=== PATIENT | female | born 1960 | race Caucasian/White ===

== ENCOUNTER → 2017-03-31 | Outpatient (CLI) | payer OTHER ==
--- NOTE | 2017-03-31 15:06 | US ---
EXAMINATION TYPE: US thyroid st tissue head/neck DATE OF EXAM: 03/31/2017 COMPARISON: NONE CLINICAL HISTORY: E04.1 Nontoxic single thyroid nodule. Follow up thyroid nodules GLAND SIZE: Right Lobe: 5.8 x 1.6 x 2.0 cm Overall Parenchyma: heterogenous Left Lobe: 5.6 x 1.5 x 1.8 cm Overall Parenchyma: heterogeneous Isthmus Thickness: 0.2 cm NODULES RIGHT: # of nodules measured on right: 2 1. 0.9 X 0.7 x 0.6 cm isoechoic solid nodule at the mid pole with well-defined margins; . This nod ule is wider than tall and shows intranodular vascularity. Prior size: 0.8 x 0.5 x 0.7 cm 2. 0.7 X 0.6 x 0.8 cm isoechoic solid nodule at the lower pole with well-defined margins; . This no dule is wider than tall and shows intranodular vascularity. Prior size: 0.7 x 0.5 x 0.8 cm LEFT: # of nodules measured on left: 0 ISTHMUS: # of nodules measured in the isthmus: 0 Bilateral neck scanned, no evidence of lymphadenopathy. Heterogeneous gland. 2 nodules noted right lobe with little to no change from prior exam. Unable to i dentify a distinct nodule within left lobe. IMPRESSION: Unchanged subcentimeter right thyroid nodules in a heterogenous and enlarged thyroid gland. The previ ously seen left thyroid nodule is not clearly defined on this study and not measurable. Follow-up as clinically indicated.
== END | disposition home or self-care (01) ==
LOC: RADUSWWP 14:15
PROVIDERS: ATTEND Family Medicine
DX: E04.2 Nontoxic multinodular goiter (principal)
CPT/HCPCS: 76536

== ENCOUNTER → 2017-04-18 | Outpatient (CLI) | payer OTHER ==
--- NOTE | 2017-04-18 10:44 | MM ---
Reason for exam: clinical finding. Last mammogram was performed 11 months ago. History: Patient is postmenopausal and has history of breast cancer at age 55. Implant in the right breast, July 2016. Reconstructions, 2016. Mastectomy of the right breast, 2016. Chemotherapy, 2016. Radiation therapy of the right breast, 2016. Malignant US biopsy breast VAD RT of the right breast, July 21, 2015. Malignant US biopsy breast add'l VAD RT of the right breast, July 21, 2015. Benign excisional biopsy of the right breast, 2005. Taking antineoplastic for 1 year 6 months beginning at age 55. Indicated problem(s): lump or thickening in the left breast. Physical Findings: Nurse did not find any significant physical abnormalities on exam. MG Diagnostic Mammo LT w CAD CC and MLO view(s) were taken of the left breast. Prior study comparison: May 13, 2016, left breast MG diagnostic mammo LT w CAD. July 21, 2015, right breast MG diagnostic mammo RT wo CAD. The breast tissue is heterogeneously dense. This may lower the sensitivity of mammography. Finding #1: There is a 3 mm equal density (isodense), obscured round mass in the 9 o'clock inner quadrant, middle position of the left breast, 4cm from the nipple, smaller than 2016. Finding #2: There are typically benign, fine, diffuse/scattered calcifications in the left breast. These results were verbally communicated with the patient and result sheet given to the patient on 04/18/17. ASSESSMENT: Benign, BI-RAD 2 RECOMMENDATION: Follow-up diagnostic mammogram of both breasts in 1 year. Manage patient on a clinical basis.
--- NOTE | 2017-04-18 10:45 | USB ---
Reason for exam: clinical finding. History: Patient is postmenopausal and has history of breast cancer at age 55. Implant in the right breast, July 2016. Reconstructions, 2016. Mastectomy of the right breast, 2016. Chemotherapy, 2016. Radiation therapy of the right breast, 2016. Malignant US biopsy breast VAD RT of the right breast, July 21, 2015. Malignant US biopsy breast add'l VAD RT of the right breast, July 21, 2015. Benign excisional biopsy of the right breast, 2005. Taking antineoplastic for 1 year 6 months beginning at age 55. US Breast LT Left breast ultrasound includes all four quadrants, the retroareolar region and axilla. Finding demonstrates a 0.6 x 0.4 x 0.3cm cystic lesion at 1 o'clock. These results were verbally communicated with the patient and result sheet given to the patient on 04/18/17. ASSESSMENT: Benign, BI-RAD 2 RECOMMENDATION: Follow-up diagnostic mammogram of both breasts in 1 year. Manage patient on a clinical basis.
== END | disposition home or self-care (01) ==
LOC: RADMAMWWP 09:33
PROVIDERS: ATTEND Family Medicine
DX: Z08 Encounter for follow-up examination after completed treatment for malignant neoplasm (principal); N63 Unspecified lump in breast; Z85.3 Personal history of malignant neoplasm of breast
CPT/HCPCS: 76641; G0206

== ENCOUNTER → 2017-12-22 | Outpatient (CLI) | payer OTHER ==
--- NOTE | 2017-12-22 11:37 | BD ---
EXAMINATION TYPE: MG DEXA axial skeleton. DATE OF EXAM: 12/22/2017 COMPARISON: 12.13.2015 DEXA bone scan. CLINICAL HISTORY: 57 YR OLD FEMALE.....ICD-10 CODE: Z79.890 POST MARCY W/HRT, N95.1 POST MENOPAUSE Height: 64 Weight: 137 FRAX RISK QUESTIONS: Alcohol (3 or more units per day): NO Family History (Parent hip fracture): NO Glucocorticoids (More than 3mos): NO (Ex: prednisone, prednisolone, methylprednisolone, dexamethasone, and hydrocortisone). History of Fracture in Adulthood: NO Secondary Osteoporosis: NO 1. Type 1 Diabetes: NO 2. Hyperthyroidism: NO 3. Menopause before 45: NO 4. Malnutrition: NO 5. Chronic liver disease: NO Rheumatoid Arthritis: NO Current Tobacco Use: NO RISK FACTORS HISTORY OF: Active: YES Diet low in dairy products/other sources of calcium: YES Postmenopausal woman: YES AT AGE 49YRS Hyperparathyroidism: NO Adrenal Insufficiency: NO MEDICATIONS: Prednisone or other steroids: STEROIDS ONLY WITH ILLNESS Thyroid Medications: YES, GENERIC SYNTHROID, X15 YRS Additional Medications: ANASTRAZOLE, HX OF CHEMO AND RADIATION, CALCIUM AND VIT D, Additional History: HX OF RT BREAST CANCER, 2016 , ALLERGIES EXAM MEASUREMENTS: Bone mineral densitometry was performed using the [email or web address] System. Bone mineral density as measured about the Lumbar spine is: ----- L1-L4(G/cm2): 1.301 T Score Values are as follows: ----- L1: 1.0 ----- L2: 1.2 ----- L3: 1.5 ----- L4: 0.3 ----- L1-L4: 1.0 Bone mineral density has: Decreased -8.4% since study of: 12.13.2015 Bone mineral density about the R hip (g/cm2): 1.010 Bone mineral density about the L hip (g/cm2): 0.996 T Score values are as follows: -----R Neck: -0.8 -----L Neck: -0.9 -----R Total: 0.0 -----L Total: -0.1 Bone mineral density has: Decreased -7.0% since study of: 12.13.2015 FRAX%S: THERE IS A 6.7% CHANCE OF A MAJOR OSTEOPOROTIC FX AND A 0.4% FOR HIP FX.....PROBABILITY OF FX IN 10 YRS TIME IMPRESSION: Normal (Values between +1 and -1 indicate normal bone mass). Bone density is diminished from prior b ut remains in the normal range. Consider repeating this study in 5 years or sooner if there is some n ew clinical indication. NOTE: T-SCORE=SD OF THE YOUNG ADULT MEAN.
== END | disposition home or self-care (01) ==
LOC: RADBDWWP 10:30
PROVIDERS: ATTEND Internal Medicine Hematology & Oncology
DX: C50.811 Malignant neoplasm of overlapping sites of right female breast (principal); N95.1 Menopausal and female climacteric states; Z79.890 Hormone replacement therapy
CPT/HCPCS: 77080

== ENCOUNTER → 2018-04-21 | Outpatient (CLI) | payer OTHER ==
--- NOTE | 2018-04-21 12:03 | MM ---
Reason for exam: additional evaluation requested from prior study. Last mammogram was performed 1 year ago. History: Patient is postmenopausal and has history of breast cancer at age 55. Implant in the right breast, July 2016. Reconstructions, 2016. Mastectomy of the right breast, 2016. Chemotherapy, 2016. Radiation therapy of the right breast, 2016. Malignant US biopsy breast VAD RT of the right breast, July 21, 2015. Malignant US biopsy breast add'l VAD RT of the right breast, July 21, 2015. Benign excisional biopsy of the right breast, 2005. Taking antineoplastic for 1 year 6 months beginning at age 55. Physical Findings: Nurse did not find any significant physical abnormalities on exam. MG 3D Diag Mammo W/Cad LT CC, MLO, LM, CC with magnification, and ML with magnification view(s) were taken of the left breast. Prior study comparison: April 18, 2017, left breast MG diagnostic mammo LT w CAD. May 13, 2016, left breast MG diagnostic mammo LT w CAD. The breast tissue is heterogeneously dense. This may lower the sensitivity of mammography. Finding: There are changing punctate, segmental calcifications in the upper outer quadrant, middle position of the left breast 7cm from the nipple. New finding since April 18, 2017. These results were verbally communicated with the patient and result sheet given to the patient on 04/21/18. ASSESSMENT: Suspicious, BI-RAD 4 RECOMMENDATION: Stereotactic core biopsy of the left breast. Called with mammographic findings and has scheduled an appointment for the patient for 04/22/18 at 9:[address] Barker. PRELIMINARY REPORT CALLED AND FAXED TO DR. BARKER ON 04/21/18.
== END | disposition home or self-care (01) ==
LOC: RADMAMWWP 09:23
PROVIDERS: ATTEND Internal Medicine Hematology & Oncology
DX: Z08 Encounter for follow-up examination after completed treatment for malignant neoplasm (principal); Z85.3 Personal history of malignant neoplasm of breast
CPT/HCPCS: 77061; 77065

== ENCOUNTER → 2018-04-23 | Outpatient (CLI) | payer OTHER ==
[2018-04-23 12:30] VITALS: BP 100/65; PULSE 78; RESP 14; TEMP 98; BMI 22.6
--- NOTE | 2018-04-23 12:48 | P.GSHP ---
History of Present Illness H&P Date: 04/23/18 The patient is a 57-year-old white female status post right breast mastectomy and reconstruction in 2016. The tumor was Stage 1, but close to the chest wall. She subsequently underwent chemotherapy and is on anastrozole. She also had radiation therapy secondary to the location near the chest wall. She presents today for a stereotactic core biopsy of the left breast. The patient is mammogram was reviewed with Dr. Díaz and the patient has 3 potential areas noted on her mammogram. There is an area of increasing microcalcifications in the retromammary tissue close to the chest wall which was unable to be localized on the stereotactic table. There are 2 additional areas in the breast one slightly anterior and one in the axillary area which we have reviewed. The patient does not feel anything of concern in her breast. She has no nipple discharge or skin changes of concern. Family History: 1. mother: lung, smoker 2. maternal grandmother: uterine 3. paternal grandmother: cancer in eye Hormonal history: Menarche: 10 Pregnancies: 3 pregnancies, 3 children breast-fed, first at 23 menopause: 45 BCP: 2 years hormones: none Past Surgical History 1. right ear drum 2. tonsil/adenoid 3. right mastectomy and reconstruction Past Medical History: 1. history of breast cancer Social History: smoke: none alcohol: none drugs: none - Constitutional Constitutional: Denies chills, Denies fever - EENT Eyes: denies blurred vision, denies pain Ears: deny: decreased hearing, tinnitus Ears, nose, mouth and throat: Denies headache, Denies sore throat - Breasts Breasts: bilateral: as per HPI - Cardiovascular Cardiovascular: Denies chest pain, Denies shortness of breath - Respiratory Respiratory: Denies cough, Denies 7 - Gastrointestinal Gastrointestinal: Denies abdominal pain, Denies diarrhea, Denies nausea, Denies vomiting - Genitourinary (Female) Genitourinary: Denies dysuria, Denies hematuria - Menstruation Menstruation: Reports postmenopausal - Musculoskeletal Comment: stiffness in am - Integumentary Integumentary: Denies pruritus, Denies rash - Neurological Neurological: Denies numbness, Denies weakness - Psychiatric Psychiatric: Denies anxiety, Denies depression - Endocrine Comment: thyroid nodule Endocrine: Denies fatigue, Denies weight change - Hematologic/Lymphatic Comment: none - Allergic/Immunologic Allergic/Immunologic: Reports seasonal allergies Past Medical History Past Medical History: Cancer, Thyroid Disorder Additional Past Medical History / Comment(s): breast cancer History of Any Multi-Drug Resistant Organisms: None Reported Past Surgical History: Breast Surgery, Ear Surgery, Tonsillectomy Additional Past Surgical History / Comment(s): breast biopsy, colonoscopy Past Anesthesia/Blood Transfusion Reactions: Postoperative Nausea & Vomiting ( PONV) Past Psychological History: No Psychological Hx Reported Smoking Status: Never smoker Past Alcohol Use History: Occasional Past Drug Use History: None Reported - Past Family History Mother Family Medical History: Cancer Additional Family Medical History / Comment(s): lung Medications and Allergies Home Medications Medication Instructions Recorded Confirmed Type Levothyroxine Sodium [Synthroid] 75 mcg PO DAILY 08/16/15 04/23/18 History Anastrozole [Arimidex] 1 mg PO HS 07/19/16 04/23/18 History Cholecalciferol [Vitamin D3] 2,000 unit PO DAILY 07/19/16 04/23/18 History Cyanocobalamin [Vitamin B-12] 500 mcg PO DAILY 07/19/16 04/23/18 History Acetaminophen/Diphenhydramine 1 each PO HS PRN 04/22/18 04/23/18 History [Tylenol PM 500-25mg] Loratadine 10 mg PO DAILY 04/22/18 04/23/18 History Allergies Allergy/AdvReac Type Severity Reaction Status Date / Time adhesive AdvReac red skin Verified 04/23/18 12:15 Surgical - Exam - General well developed, well nourished, no distress - Eyes normal ocular movement, no icteric - ENT no hearing loss, no congestion - Neck no masses, trachea midline - Respiratory normal respiratory effort, clear to auscultation - Cardiovascular Rhythm: regular Heart Sounds: normal: S1, S2 - Abdomen Abdomen: soft, non tender, no guarding, no rigid, no rebound - Neurologic no disoriented, no combative - Musculoskeletal normal gait, normal posture - Psychiatric oriented to time, oriented to person, oriented to place, speech is normal, memory intact Breast examination: Right chest wall well-healed scar from prior mastectomy and breast reconstruction no evidence of recurrent disease, Right axilla: No adenopathy of concern Left breast: Positional exam no dominant masses or nodules of concern Left axilla: Shoddy adenopathy Results Patient's left breast mammogram was reviewed in detail with Dr. Díaz. There is a area which is close to the chest wall which they attempted to do stereotactic biopsy on today unsuccessfully which needs to have needle localization and excisional biopsy, additionally there are several other areas of calcification which are of somewhat concern and it is recommended by Dr. Díaz that an MRI be performed prior to recommendation regarding the other areas of calcification Assessment and Plan Assessment: Impression 1. Mammographic abnormality left breast 2. Prior right breast stage I cancer 3. Patient on anastrozole 4. Hypothyroidism 5. Patient status post radiation therapy right chest wall area related to the posterior position of the right breast cancer Plan: 1. After discussion with Dr. Díaz the patient will have an MRI of the left breast depending on results of this patient will have at minimum a needle localization and excision of the area in the posterior left breast, 2 other areas of microcalcifications are going to be evaluated on MRI the decision to biopsy will be made after this is preformed 2. Continued anastrozole 3. Medical management of medical conditions CC: Dr. Barker, Dr. Carmen
== END | disposition home or self-care (01) ==
LOC: WWCWWP 11:51
PROVIDERS: ATTEND Surgery
DX: Z53.9 Procedure and treatment not carried out, unspecified reason (principal)

== ENCOUNTER → 2018-04-23 | Day surgery (SDC) | payer OTHER ==
[2018-04-23 09:21] VITALS: BP 99/62; PULSE 78; RESP 16; TEMP 98.1; BMI 22.6
--- NOTE | 2018-04-23 16:36 | MM ---
EXAMINATION TYPE: MG discontinued stereo core LT DATE OF EXAM: 04/23/2018 COMPARISON: 04/21/2018 mammogram CLINICAL HISTORY: Abnormal calcifications TECHNIQUE: Stereotactic guided core biopsy of left breast. FINDINGS: The procedure of stereotactic guided core biopsy was explained to the patient. Benefits, a lternatives, and risks were discussed. An informed consent was then obtained. A timeout was performed. Multiple attempts to localize the calcifications were unsuccessful. Attempts to put the arm through t he whole and additional positioning was performed in orthogonal planes. The patient was very cooperat [place]ap[place] and capable. The positioning of calcifications however, was such that these could not be localize d for stereotactic core biopsy. The inability to localize these calcifications prevented the procedure from progressing. This was exp lained to the patient. Patient was referred to surgery for additional options. Subsequently, images w ere reviewed in case discussed with the patient's surgeon to review she was referred to. In discussio n with the surgeon the calcifications attempted to be localized where the posterior left cranial caud al view. These are not well visualized on medial lateral or medial lateral oblique views. There are a dditional calcifications present more anteriorly. IMPRESSION: 1. Unsuccessful stereotactic core biopsy, unable to localize the very posterior calcifications identi fied. Recommendations: 1. Options include MRI to evaluate for multiplicity if that would change surgical options. Calcificat ions may be able to be localized by tomographic imaging. Surgery suggests 2-3 sites for potential loc alization including the posterior calcifications, a few scattered calcifications in the axillary tail region on the craniocaudal view, and a grouping of calcifications on the medial lateral oblique view within the mid upper portion. Surgeon will discuss options available to the patient.
== END ==
LOC: RADMAMWWP 08:49
PROVIDERS: ATTEND Family Medicine
DX: R92.0 Mammographic microcalcification found on diagnostic imaging of breast (principal); Z53.8 Procedure and treatment not carried out for other reasons

== ENCOUNTER → 2018-04-25 | Outpatient (CLI) | payer OTHER ==
--- NOTE | 2018-04-28 08:36 | BMR ---
EXAMINATION TYPE: MR breast BILAT wo/w con DATE OF EXAM: 04/25/2018 COMPARISON: Prior MRI bilateral breasts August 07, 2015. Diagnostic Three-D mammogram April 21, 2018 BI-RADS 4. HISTORY: Abnormal mamm lt breast, hx breast ca 2015, rt mastectomy. Suspicious calcifications unable to sample using stereotactic guided biopsy. CONTRAST: Multiplanar, multisequence images of the breasts were acquired utilizing 5.5 mL intravenous Gadavist gadolinium contrast. TECHNIQUE: A series of fat and water weighted images in the long and short axis views of both breasts are obtained in conjunction with dynamic contrast MRI with subtraction technique. Three-dimensional and additional postprocessing imaging is created on independent workstation and reviewed during offi cial interpretation of this study. FINDINGS: Heterogeneously dense fibroglandular tissue throughout the left breast is present. Axial T2 -weighted images demonstrate no significant cystic change or fluid collections. Delayed postcontrast images show no suspicious intramammary adenopathy. There is right breast implant noted after right-sided mastectomy. No suspicious right axillary adenop athy is seen. No suspicious enhancement is seen. Regarding the left breast there are benign-appearing subcentimeter lymph nodes in the left axilla. Mi ld background enhancement is present. No pathologic enhancement or suspicious enhancing masses are id entified. No suspicious skin thickening is seen. A few round T2 hyperintense lesions in the hepatic dome favor simple thin-walled cysts for reference axial image 11 series 301. IMPRESSION: No MRI evidence for invasive malignancy in the left breast. BI-RADS 2 benign findings right breast. BI-RADS 2 benign findings left breast Recommendation: Appropriate management for suspicious group of calcifications based on degree of mamm ographic suspicion, from needle localization versus six-month follow-up mammogram.
== END | disposition home or self-care (01) ==
LOC: RADMRIMAIN 10:10
PROVIDERS: ATTEND Surgery
DX: R92.8 Other abnormal and inconclusive findings on diagnostic imaging of breast (principal); Z85.3 Personal history of malignant neoplasm of breast
CPT/HCPCS: 77059; 0159T; A9581

== ENCOUNTER → 2018-05-04 | Outpatient (CLI) | payer OTHER ==
--- NOTE | 2018-05-04 18:06 | P.PN ---
Progress Note - Text Progress Note Date: 05/04/18 The patient is a 57-year-old white female who was initially scheduled for a left breast stereotactic core biopsy of an area of suspicious microcalcifications. The lesion however was unable to be localized and after review of the radiograph with the radiologist was recommended she undergo an MRI of the left breast. MRI of the left breast showed only benign findings in the left breast BIRADS 2 the patients MRI and mammogram were therefore be reviewed with the radiologist. The original suspicious group of microcalcifications could not be well-seen on 2 views and it was therefore felt that it would be best to do a 6 month follow-up of this area. This was particularly in view of the fact that the MRI appeared to be nonsuspicious. The patient and her were notified of this and we had a long discussion regarding attempt at needle localization and excisional biopsy versus six-month repeat radiographs. After discussion they have agreed to six-month follow-up of the left breast with diagnostic mammography and further recommendation to follow. They understand that I cannot assure that there will not be something at that time that warrants biopsy that there could even be a malignancy which is very small but at this time we do not feel we can adequately localize. We will follow up in 6 months time with repeat radiographs at that time. Cc: Dr. Barker
== END | disposition home or self-care (01) ==
LOC: WWCWWP 15:51
PROVIDERS: ATTEND Surgery
DX: Z53.9 Procedure and treatment not carried out, unspecified reason (principal)

== ENCOUNTER → 2018-06-08 | Outpatient (CLI) | payer OTHER ==
--- NOTE | 2018-06-09 11:33 | US ---
EXAMINATION TYPE: US thyroid st tissue head/neck DATE OF EXAM: 06/08/2018 COMPARISON: US CLINICAL HISTORY: E04.1 Thyroid nodule. GLAND SIZE: Right Lobe: 5.5 x 1.8 x 1.7 cm Overall Parenchyma: heterogenous Left Lobe: 5.7 x 1.7 x 1.5 cm Overall Parenchyma: heterogeneous Isthmus Thickness: 0.4 cm NODULES RIGHT: # of nodules measured on right: 2 1. 0.9 X 0.6 x 0.6 cm isoechoic solid nodule at the mid pole with well-defined margins. This nodul e is wide as is tall and shows intranodular vascularity. Prior size: 0.9 x 0.7 x 0.6 cm 2. 0.6 X 0.5 x 0.5 cm isoechoic solid nodule at the lower pole with well-defined margins. This nodu le is wide as is tall and shows intranodular vascularity. Prior size: 0.7 x 0.6 x 0.8 cm LEFT: # of nodules measured on left: 1 1. 0.5 X 0.4 x 0.4 cm hypoechoic mixed nodule at the mid pole with well-defined margins. This nodu le is wide as is tall and shows no intranodular vascularity. Prior size: no prior ISTHMUS: # of nodules measured in the isthmus: 0 Bilateral neck scanned: no evidence of lymphadenopathy. IMPRESSION: Bilateral subcentimeter thyroid nodules in an overall multinodular goiter. Right nodules demonstrate overall stability and the left nodule is new. These do not yet meet size criteria for percutaneous bi opsy and therefore surveillance could be performed.
== END | disposition home or self-care (01) ==
LOC: RADUSWWP 16:45
PROVIDERS: ATTEND Family Medicine
DX: E04.2 Nontoxic multinodular goiter (principal)
CPT/HCPCS: 76536

== ENCOUNTER → 2018-11-03 | Outpatient (CLI) | payer OTHER ==
--- NOTE | 2018-11-03 11:36 | MM ---
Reason for exam: follow-up at short interval from prior study. Last mammogram was performed 6 months ago. History: Patient is postmenopausal and has history of breast cancer at age 55. MG discontinued stereo core LT of the left breast, April 23, 2018. Implant in the right breast, July 2016. Reconstructions, 2016. Mastectomy of the right breast, 2016. Chemotherapy, 2016. Radiation therapy of the right breast, 2016. Malignant US biopsy breast VAD RT of the right breast, July 21, 2015. Malignant US biopsy breast add'l VAD RT of the right breast, July 21, 2015. Benign excisional biopsy of the right breast, 2005. Taking antineoplastic for 2 years 6 months beginning at age 55. Physical Findings: Nurse did not find any significant physical abnormalities on exam. MG 3D Diag Mammo W/Cad LT CC, MLO, ML, CC with magnification, and ML with magnification view(s) were taken of the left breast. Prior study comparison: April 25, 2018, bilateral MR breast bilat wo/w con. April 21, 2018, left breast MG 3d diag mammo w/cad LT. April 18, 2017, left breast MG diagnostic mammo LT w CAD. The breast tissue is heterogeneously dense. This may lower the sensitivity of mammography. There is a group of linear pleomorphic calcifications in the upper outer quadrant at far posterior depth that have a suspicious morphology. Although these are stable in comparison to the most recent exam these are slowly increasing over time and of suspicious morphology. Surgical excision remains a recommendation. Other upper outer quadrant group appear less suspicious. These results were verbally communicated with the patient and result sheet given to the patient on 11/03/18. ASSESSMENT: Suspicious, BI-RAD 4 RECOMMENDATION: Surgical consultation and localization and excision of the left breast. Called with mammographic findings and has scheduled an appointment for the patient for 11/20/18 at 1:[address] Galdamez. PRELIMINARY REPORT CALLED AND FAXED TO DR. GALDAMEZ ON 11/03/18.
== END ==
LOC: RADMAMWWP 08:49
PROVIDERS: ATTEND Family Medicine
DX: R92.8 Other abnormal and inconclusive findings on diagnostic imaging of breast (principal); N63.20 Unspecified lump in the left breast, unspecified quadrant; Z85.3 Personal history of malignant neoplasm of breast
CPT/HCPCS: 77061; 77065

== ENCOUNTER → 2018-11-19 | Outpatient (CLI) | payer OTHER ==
--- NOTE | 2018-11-19 12:33 | P.STRESS ---
- Stress Test Note Stress Test Results/Findings: Exam Performed: stress echo exercise Exam Date: 11/19/18 Reason for Exam: CP Height: 5 ft 4 in Weight: 61.235 kg Protocol: STRESS ECHO Stage: 3 Duration of Exercise: 8:30 Resting Heart Rate: 74 Resting Blood Pressure: 143/86 Maximum Achieved Heart Rate: 150 Maximum Achieved Blood Pressure: 165/74 85% PMHR: 136 100% PMHR: 160 METS: 10.3 Technologist Comment: Stress Test Results/Findings: This is a 58-year-old female with history of hypercholesterolemia being evaluated for chest pains. Stress data. Baseline EKG showed sinus rhythm with a diffuse ST-T changes in inferolateral leads. Blood pressure at rest is 143/86 with pulse rate of 74. Patient walked on the Baltazar protocol for about 8 minutes and 30 seconds achieving a maximal heart rate of 150 with a blood pressure 165/74. EKGs taken during and after exercise continued to show nonspecific ST-T changes without any significant deviation from the baseline. Patient did not experience any chest pain. Echo data: Baseline echo images showed normal wall motion and thickening. Exercise echo images showed augmentation of the wall motion and thickening in all the segments. Final impression: #1. Negative stress echo. #2. Negative stress test
== END ==
LOC: RADNMMAIN 09:01
PROVIDERS: ATTEND Family Medicine
DX: R07.9 Chest pain, unspecified (principal)
CPT/HCPCS: 93351

== ENCOUNTER → 2018-11-20 | Outpatient (CLI) | payer OTHER ==
[2018-11-20 14:19] VITALS: BP 122/76; PULSE 86; RESP 16; TEMP 98.1; BMI 23.1
--- NOTE | 2018-11-20 15:35 | P.GSHP ---
History of Present Illness H&P Date: 11/20/18 Chief Complaint: abnormal mammogram There is a 58-year-old white female who is status post right breast mastectomy and reconstruction in 2015. The tumor was stage I but close to the chest wall. She subsequently underwent chemotherapy and is presently on anastrozole. She also had radiation therapy secondary to the location of the chest wall. She underwent radiographic evaluation of the left breast in April 2018. At that time she was noted to have some microcalcifications for which stereotactic core biopsy was attempted. The patient was unable to undergo a stereotactic biopsy secondary to the inability to localize the lesion on the stereotactic table. The patient then underwent a breast MRI which was felt to be benign. She now presents with a repeat mammogram and on the repeat mammogram microcalcifications are again visible. At this time it is recommended that she undergo needle localization and excision in the operating room of the areas of concern. The patient does not feel anything of concern in her breast. She has no nipple discharge or skin changes. Family history: 1. Mother: Lung smoker 2. Maternal grandmother: Uterine cancer 3. Paternal grandmother colon cancer in the eye Hormonal history: Menarche: 10 Pregnancies: 3, 3 children breast-fed for 625 Menopause: 45 control pills: 2 years Hormones: None Past surgical history: 1. Right eardrum 2. Tonsil adenoid 3. Right mastectomy and reconstruction Past medical history: 1. History of breast cancer Social history: Smoke: Negative Alcohol: Negative Drugs: Negative Review of systems: HEENT: cold sore on the edge of her nose Lungs: negative heart: none, stress test done awaiting results GI: constipation : none Musculoskeletal: Negative GI: - Constitutional Constitutional: Denies chills, Denies fever - EENT Eyes: denies blurred vision, denies pain Ears: deny: decreased hearing, tinnitus Ears, nose, mouth and throat: Denies headache, Denies sore throat - Breasts Breasts: bilateral: as per HPI - Cardiovascular Cardiovascular: Reports as per HPI - Respiratory Respiratory: Reports as per HPI - Gastrointestinal Gastrointestinal: Reports as per HPI - Genitourinary (Female) Genitourinary: Reports as per HPI - Menstruation Menstruation: Reports postmenopausal - Musculoskeletal Musculoskeletal: Reports as per HPI - Integumentary Integumentary: Reports as per HPI - Neurological Neurological: Reports as per HPI - Psychiatric Psychiatric: Reports as per HPI - Endocrine Endocrine: Denies fatigue, Denies weight change - Hematologic/Lymphatic Comment: aspirin - Allergic/Immunologic Allergic/Immunologic: Reports seasonal allergies Past Medical History Past Medical History: Cancer, Thyroid Disorder Additional Past Medical History / Comment(s): breast cancer History of Any Multi-Drug Resistant Organisms: None Reported Past Surgical History: Breast Surgery, Ear Surgery, Tonsillectomy Additional Past Surgical History / Comment(s): breast biopsy, colonoscopy Past Anesthesia/Blood Transfusion Reactions: Postoperative Nausea & Vomiting (PONV) Past Psychological History: No Psychological Hx Reported Smoking Status: Never smoker Past Alcohol Use History: Occasional Past Drug Use History: None Reported - Past Family History Mother Family Medical History: Cancer Additional Family Medical History / Comment(s): lung Medications and Allergies Home Medications Medication Instructions Recorded Confirmed Type Levothyroxine Sodium [Synthroid] 75 mcg PO DAILY 08/16/15 11/20/18 History Anastrozole [Arimidex] 1 mg PO HS 07/19/16 11/20/18 History Cholecalciferol [Vitamin D3] 2,000 unit PO DAILY 07/19/16 11/20/18 History Cyanocobalamin [Vitamin B-12] 500 mcg PO DAILY 07/19/16 11/20/18 History Acetaminophen/Diphenhydramine 1 each PO HS PRN 04/22/18 11/20/18 History [Tylenol PM 500-25mg] Loratadine 10 mg PO DAILY 04/22/18 11/20/18 History Aspirin 81 mg PO DAILY 11/20/18 11/20/18 History Allergies Allergy/AdvReac Type Severity Reaction Status Date / Time adhesive AdvReac red skin Verified 11/20/18 14:21 Surgical - Exam Vital Signs Temp Pulse Resp BP Pulse Ox 98.1 F 86 16 122/76 97 11/20/18 14:14 11/20/18 14:14 11/20/18 14:14 11/20/18 14:14 11/20/18 14:14 BMI 23.2 - General well developed, well nourished, no distress - Eyes normal ocular movement - ENT no hearing loss, no congestion - Neck no masses, trachea midline - Respiratory normal respiratory effort, clear to auscultation - Cardiovascular Rhythm: regular - Abdomen Abdomen: soft, non tender, no guarding, no rigid, no rebound - Integumentary normal turgor - Musculoskeletal normal gait, normal posture - Psychiatric oriented to time, oriented to person, oriented to place, speech is normal, memory intact Breast examination: Right chest wall: Status post mastectomy with reconstruction no evidence of any recurrence and the skin Right axilla: No adenopathy of concern Left breast: Multi-positional exam no dominant masses or nodules of concern, fibrocystic changes dense breast Left axilla: No adenopathy of concern Results Mammogram results reviewed Assessment and Plan Assessment: Impression: 1. Prior right breast cancer status post mastectomy with subpectoral implant reconstruction no evidence of recurrent disease 2. Patient presently on anastrozole 3. Radiographic abnormality mammogram left breast 4. Dense breast 5. Fibrocystic breast changes 6. Family history of cancer 7. Chest pain being worked up via stress test at this time 8. Intermittent sore internal nose The patient's case was discussed with Dr. Mustafa and radiographs were reviewed. He is recommending needle localization and excisional biopsy. The patient understands and this will be scheduled in the near future. Risk and benefits were discussed. Plan: 1. Left breast needle local excisional biopsy of radiographic abnormality 2. Continue anastrozole 3. Medical management of medical conditions 4. Prior to any surgical intervention were assured a cardiac workup is complete and normal CC: Dr. Barker
== END | disposition home or self-care (01) ==
LOC: WWCWWP 13:36
PROVIDERS: ATTEND Surgery
DX: Z53.9 Procedure and treatment not carried out, unspecified reason (principal)

== ENCOUNTER 2018-12-22 07:22 | Day surgery (SDC) | payer OTHER ==
[2018-12-18 11:53] VITALS: BMI 23.1
[~2018-12-22 07:22] MED LIST: DEXAMETHASONE SOD PHOSPHATE 10 MG/ML 1 ML VIAL IV ONE; HEPARIN SODIUM,PORCINE 5,000 UNIT/ML 1 ML VIAL SQ ONE; HYDROmorphone 0.5 MG/0.5 ML SYRINGE IVP PRN; LACTATED RINGERS 1,000 ML IV SCH; MIDAZOLAM (PF) 2 MG/2 ML VIAL IV PRN; ONDANSETRON 4 MG/2 ML VIAL IVP ONE; Pre Op ABX Message 1 EACH MISC MISCELLANE ONE; SCOPOLAMINE 1.5MG/72HR PATCH TRANSDERM ONE
[2018-12-22] MEDS ORDERED: LIDOCAINE 1% 20 ML VIAL (10MG/ML) FOR IV START INTRADERMA ONE (08:03)
[2018-12-22] MEDS ORDERED: LACTATED RINGERS 1,000 ML IV ONE ×2 (08:05→11:12)
[2018-12-22] MEDS ORDERED: ALPRAZolam 0.25 MG TAB PO ONE (08:07)
[2018-12-22] MEDS ORDERED: LIDOCAINE 1% INJ 10MG/ML (20 ML MDV) SQ ONE ×3 (09:01→10:44)
[2018-12-22] MEDS ORDERED: SODIUM BICARB 4% 5 ML VIAL (0.48 MEQ/ML) MISCELLANE ONE (09:01)
--- NOTE | 2018-12-22 09:36 | P.GSHP ---
History of Present Illness H&P Date: 12/22/18 Chief Complaint: abnormal mammogram The patient is a 58-year-old white female who is status post right breast mastectomy and reconstruction in 2015. The tumor was a stage I but close to the chest wall. She subsequently underwent chemotherapy and is presently on anastrozole. She also had radiation therapy secondary to the location near the chest wall. She underwent radiographic evaluation of the left breast in April 2018. Attention was noted to have some microcalcifications for which stereotactic core biopsy was attempted. The patient was unable to undergo a stereotactic core biopsy secondary to the inability to localize the lesion on the stereotactic table. The patient then underwent a breast MRI which was felt to be benign. She then presented with a repeat mammogram and underwent repeat mammogram the microcalcifications were again visible and felt to be of greater concern. At this time it is recommended that she undergo needle localization and excision the operating removal of the areas of concern in the left breast. The patient herself does not feel anything of concern in her breast. She has no nipple discharge or skin changes. Family history: 1. Mother: Lung cancer 2. Maternal grandmother: Uterine cancer 3. Paternal grandmother: Colon cancer Hormonal history: Menarche: 10 Pregnancies: 3, 3 children breast fed Menopause: 45 Procedure post: 2 years Hormones: Negative Past surgical history: 1. Right eardrum 2. Tonsils and adenoids 2. Right mastectomy and reconstruction Past medical history: 1. History of breast cancer Social history: Smoke: Negative Alcohol: Negative Drugs: Negative Review of systems: HEENT: Cold saline edge of her nose Lungs: Negative Heart: Negative stress test recently performed GI: Constipation : Negative Musculoskeletal: Negative - Constitutional Constitutional: Denies chills, Denies fever - EENT Eyes: denies blurred vision, denies pain Ears, nose, mouth and throat: Denies headache, Denies sore throat - Breasts Breasts: bilateral: as per HPI - Cardiovascular Cardiovascular: Denies chest pain, Denies shortness of breath - Respiratory Respiratory: Reports as per HPI - Gastrointestinal Gastrointestinal: Reports as per HPI - Genitourinary (Female) Genitourinary: Reports as per HPI - Menstruation Menstruation: Reports postmenopausal - Musculoskeletal Musculoskeletal: Reports as per HPI - Integumentary Integumentary: Reports as per HPI - Psychiatric Psychiatric: Reports as per HPI - Endocrine Comment: thyroid disorder Endocrine: Denies fatigue, Denies weight change - Hematologic/Lymphatic Comment: uses aspirin - Allergic/Immunologic Allergic/Immunologic: Reports seasonal allergies Past Medical History Past Medical History: Cancer, Chest Pain / Angina, Thyroid Disorder Additional Past Medical History / Comment(s): breast cancer , seasonal allergies receives allergy shots History of Any Multi-Drug Resistant Organisms: None Reported Past Surgical History: Breast Surgery, Ear Surgery, Tonsillectomy Additional Past Surgical History / Comment(s): breast biopsy, rt breast mastectomy, colonoscopy, ear drum replaced rt ear Past Anesthesia/Blood Transfusion Reactions: Postoperative Nausea & Vomiting (PONV) Smoking Status: Never smoker - Past Family History Mother Family Medical History: Cancer Additional Family Medical History / Comment(s): lung Medications and Allergies Home Medications Medication Instructions Recorded Confirmed Type Levothyroxine Sodium [Synthroid] 75 mcg PO DAILY 08/16/15 12/18/18 History Anastrozole [Arimidex] 1 mg PO HS 07/19/16 12/18/18 History Cholecalciferol [Vitamin D3] 2,000 unit PO DAILY 07/19/16 12/18/18 History Cyanocobalamin [Vitamin B-12] 500 mcg PO DAILY 07/19/16 12/18/18 History Loratadine 10 mg PO DAILY 04/22/18 12/18/18 History Aspirin 81 mg PO DAILY 11/20/18 12/18/18 History Allergies Allergy/AdvReac Type Severity Reaction Status Date / Time adhesive AdvReac red skin Verified 12/18/18 11:43 Surgical - Exam Vital Signs Temp Pulse Resp BP Pulse Ox 97.8 F 72 18 132/78 97 12/22/18 07:47 12/22/18 07:47 12/22/18 07:47 12/22/18 07:47 12/22/18 07:47 BMI 23.2 - General well developed, well nourished, no distress - Eyes normal ocular movement, no icteric - ENT no hearing loss - Neck no masses, trachea midline - Respiratory normal expansion, normal respiratory effort, clear to auscultation - Cardiovascular Rhythm: regular Heart Sounds: normal: S1, S2 - Abdomen Abdomen: soft, non tender, no guarding, no rigid, no rebound - Integumentary normal turgor - Neurologic no disoriented, no combative - Musculoskeletal normal gait, normal posture - Psychiatric oriented to time, oriented to person, oriented to place, speech is normal, memory intact Breast examination: Right chest wall: Status post mastectomy with reconstruction evidence of any recurrence of the skin with soft tissues Right axilla: No adenopathy of concern {: Multi-positional exam no dominant masses or nodules of concern, fibrocystic changes, dense breast Left axilla: No adenopathy of concern Results Mammogram results reviewed Assessment and Plan Assessment: Impression: 1. Prior right breast cancer status post mastectomy with subpectoral implant reconstruction evidence of recurrent disease 2. Patient presently on anastrozole 3. Radiographic abnormality left breast unable to do stereo biopsy although attempted 4. Dense breast 5. Fibrocystic breast changes 6. Family history of cancer 7. Chest pain with negative stress test cardiac clearance 8. Intermittent sore internal nose The patient's case was discussed with Dr. Mustafa and radiographs were reviewed. He is recommended needle localization and excisional biopsy of the area of concern in the left breast. The patient understands this and wishes to undergo resection in the operating room. Plan: 1. Left breast needle localization and excisional biopsy for radiographic abnormality. 2. Continue anastrozole 3. Medical management of medical conditions CC: Dr. Barker
[2018-12-22] MEDS ORDERED: fentaNYL (PF) 50 MCG/ML 2 ML AMP ONE (10:13)
[2018-12-22] MEDS ORDERED: LIDOCAINE 1% INJ 10MG/ML (20 ML MDV) ONE (10:13)
[2018-12-22] MEDS ORDERED: KETOROLAC 30 MG/ML 1 ML VIAL ONE (10:13)
[2018-12-22] MEDS ORDERED: ePHEDrine SULFATE/0.9% NACL/PF 50 MG/5 ML SYRINGE IV ONE (10:13)
[2018-12-22] MEDS ORDERED: SUCCINYLCHOLINE CHLORIDE 100 MG/5 ML SYR IV ONE (10:13)
[2018-12-22] MEDS ORDERED: MIDAZOLAM 2 MG/2 ML VIAL ONE (10:13)
[2018-12-22] MEDS ORDERED: PROPOFOL 10 MG/ML 20 ML VIAL IV ONE (10:13)
[2018-12-22] MEDS ORDERED: HEPARIN SODIUM,PORCINE 5,000 UNIT/ML 1 ML VIAL SQ ONE (10:20)
--- NOTE | 2018-12-22 11:49 | P.OP ---
Date of Procedure: 12/22/18 Preoperative Diagnosis: Left breast microcalcifications of concern Postoperative Diagnosis: Same Procedure(s) Performed: Left breast needle localization of suspicious microcalcifications excision via Cresent mastopexy incision Anesthesia: BIMAL Surgeon: Dior Galdamez Estimated Blood Loss (ml): 5 IV fluids (ml): 800 Pathology: other (breast tissue) Condition: stable Disposition: same day Indications for Procedure: Microcalcifications of concern left breast, unable to identify these and stereotactic table Operative Findings: Dense breast tissue Description of Procedure: Joanna is a 58-year-old white female who was noted on mammogram to have microcalcifications of concern in her left breast. An attempt at stereotactic biopsy was unsuccessful secondary to inability to identify the calcifications. After review with radiology it was recommended she undergo a needle local excisional biopsy of this area. Of importance is the fact that she had a previous right breast mastectomy for malignancy. Following needle localization of area of concern in the left breast the patient was taken to the operating room. General anesthesia was induced. The left breast was marked as to where the incision was to be made. It was decided to do this through a crescent mastopexy incision. She had previously been marked while awake but this was remarked when she was asleep. Photograph was obtained. [id number] incisions were made and the superior tissue was de- epithelialized. Following this an incision was made in the lateral aspect of the crescent and dissection was performed down through the subcutaneous plane to the needle. The tissue was grasped and surrounding tissue was excised. The specimen was painted for orientation. Radiograph of the specimen revealed that the area of concern had been obtained. Superior and inferior pillars of the breast tissue were developed. Onco-plastic tissue rearrangement was performed. Approximately 15 cm of tissue was mobilized. A separate incision was made in the breast tissue to accomplish this. Tissue was mobilized in the posterior plane as well as in the anterior plane between the skin and breasts. Titanium clips were placed to erlinda the cavity. The breast tissue was brought together to close the cavity using 3-0 Vicryl suture. This was done after the wound had been examined for hemostasis, and after we were assured that hemostasis was attained. The circumareolar tissues were then closed using a 3-0 Vicryl suture followed by a 4-0 Monocryl suture. Surgical glue was applied. The patient tolerated the procedure in stable condition. All instrument and sponge counts were correct at the end of the case. A photograph was obtained at the conclusion of the case.
--- NOTE | 2018-12-22 11:52 | P.DS ---
Providers Attending physician: Dior Galdamez Primary care physician: Gudelia Barker Plan - Discharge Summary Discharge Rx Participant: No New Discharge Prescriptions: No Action Levothyroxine Sodium [Synthroid] 75 mcg PO DAILY Anastrozole [Arimidex] 1 mg PO HS Cyanocobalamin [Vitamin B-12] 500 mcg PO DAILY Cholecalciferol [Vitamin D3] 2,000 unit PO DAILY Loratadine 10 mg PO DAILY Aspirin 81 mg PO DAILY Discharge Medication List Levothyroxine Sodium [Synthroid] 75 mcg PO DAILY 08/16/15 [History] Anastrozole [Arimidex] 1 mg PO HS 07/19/16 [History] Cholecalciferol [Vitamin D3] 2,000 unit PO DAILY 07/19/16 [History] Cyanocobalamin [Vitamin B-12] 500 mcg PO DAILY 07/19/16 [History] Loratadine 10 mg PO DAILY 04/22/18 [History] Aspirin 81 mg PO DAILY 11/20/18 [History] Follow up Appointment(s)/Referral(s): Dior Galdamez MD [STAFF PHYSICIAN] - 1 Week Activity/Diet/Wound Care/Special Instructions: regular if not nauseated Patient may shower after 48 hours Wear bra at all times Discharge Disposition: HOME SELF-CARE
[2018-12-22 11:54] VITALS: TEMP 96.6
[2018-12-22 12:18] VITALS: RESP 18
[2018-12-22 12:44] VITALS: BP 126/77; PULSE 70
--- NOTE | 2018-12-24 09:25 | MM ---
EXAMINATION TYPE: MG pre op needle loc LT DATE OF EXAM: 12/22/2018 COMPARISON: Mammogram 11/03/2018 CLINICAL HISTORY: Abnormal mammogram, calcifications TECHNIQUE: Needle localization with wire placement and surgical excision of area of concern in the left breast. FINDINGS: The procedure of needle localization with wire placement and than surgical excision was explained to the patient. Benefits, alternatives, and risks were discussed. An informed consent was then obtained. A timeout was performed The shortest pathway for procedure was chosen. Shortest pathway was lateral approach. The overlying skin was prepped and draped in usual sterile fashion. Lidocaine buffered with bicarbonate was used as anesthetic into the skin and subcutaneous tissue up to the level of area of concern. A 7 cm needle was used. It was placed via a lateral approach under mammographic guidance. Subsequent 90 degrees mammogram show the needle to be in satisfactory position relative to the targeted area. At this point, wire was placed and the needle was withdrawn. The wire was fixed to patient's skin. Images were marked for surgeon. Calcifications are adjacent to the wire tip. Images and positioning was discussed with the surgeon in person by Dr. Díaz. The patient tolerated the procedure well without any immediate complication. The patient was kept in the radiology department for short stay after the procedure and then taken to surgery for surgical excision. Specimen: Targeted calcifications and wire are identified in specimen mammogram. IMPRESSION: 1. Successful wire localization and excision. Recommendations: 1. Recommendations are pending pathology results. Pathology Results: Benign LEFT BREAST, MAMMOGRAPHICALLY ORIENTED LUMPECTOMY: Fibrocystic changes and focal fibroadenoma with multifocal dystrophic calcifications. Negative for adenocarcinoma. Recommendation Follow up mammogram of the left breast in 6 months. MARYLOU
== END 2018-12-22 13:10 | disposition home or self-care (01) ==
LOC: OR 07:22
PROVIDERS: ATTEND Surgery
DX: N60.12 Diffuse cystic mastopathy of left breast (principal); D24.2 Benign neoplasm of left breast; Z85.3 Personal history of malignant neoplasm of breast; Z80.1 Family history of malignant neoplasm of trachea, bronchus and lung; Z80.0 Family history of malignant neoplasm of digestive organs; Z80.49 Family history of malignant neoplasm of other genital organs; E07.9 Disorder of thyroid, unspecified; Z79.811 Long term (current) use of aromatase inhibitors; Z79.82 Long term (current) use of aspirin; Z90.11 Acquired absence of right breast and nipple; Z79.890 Hormone replacement therapy; Z79.899 Other long term (current) drug therapy; Z88.8 Allergy status to other drugs, medicaments and biological substances
CPT/HCPCS: 19125; 88307; 76098; 19281; J2250; J1644; J1100; J2405; J2001; J3010; J1885; J0330; J2704

== ENCOUNTER → 2018-12-31 | Outpatient (CLI) | payer OTHER ==
[2018-12-31 15:43] VITALS: BP 107/69; PULSE 70; RESP 20; TEMP 97.8; BMI 23.1
--- NOTE | 2018-12-31 15:58 | P.PN ---
Progress Note - Text Progress Note Date: 12/31/18 Joanna is status post left breast needle localization and excisional biopsy on [id number] of the left breast. Pathology revealed fibrocystic changes and focal fibroadenoma with multifocal dystrophic calcifications, negative for adenocarcinoma. Has no complaints related to the procedure. Physical Exam: Lungs: Clear Heart: Regular rate and rhythm Incision: Clean and dry Impression: 1. benign breast biopsy Plan: 1. Repeat left breast mammogram in 6 months with appointment at that time. CC: Dr. Barker
== END | disposition home or self-care (01) ==
LOC: WWCWWP 15:28
PROVIDERS: ATTEND Surgery
DX: Z53.9 Procedure and treatment not carried out, unspecified reason (principal)

== ENCOUNTER → 2019-05-24 | Outpatient (CLI) | payer OTHER ==
--- NOTE | 2019-05-24 09:47 | US ---
EXAMINATION TYPE: US thyroid st tissue head/neck DATE OF EXAM: 05/24/2019 COMPARISON: NONE CLINICAL HISTORY: E04.2 Nontoxic multinodular goiter. Thyroid nodules hypothyroidism on meds for year s. GLAND SIZE: Right Lobe: 4.9 x 1.6 x 1.4 cm Overall Parenchyma: homogenous Left Lobe: 5.1 x 1.5 x 1.7 cm Overall Parenchyma: homogeneous Isthmus Thickness: .5 cm NODULES RIGHT: # of nodules measured on right: 2 1. .8 x .5 x .7 cm isoechoic solid nodule at the mid pole with well-defined margins; . This nodule is wide as is tall and shows intranodular vascularity. Prior size: .9 x .6 x .6 cm 2. .7 X .6 x .6 cm isoechoic solid nodule at the lower pole with well-defined margins; . This nodul e is wide as is tall and shows intranodular vascularity. Prior size: .6 x .5 x .5 cm LEFT: # of nodules measured on left: 1 1. .4 X .4 x .4 cm hypoechoic mixed nodule at the mid pole with well-defined margins; . This nodul e is wide as it is tall and shows no intranodular vascularity. Prior size: .5 x .4 x .4 cm ISTHMUS: # of nodules measured in the isthmus: 0 Bilateral neck scanned, no evidence of lymphadenopathy. Thyroid gland is slightly hypervascular throu ghout. IMPRESSION: 1. Bilateral subcentimeter thyroid nodules are relatively unchanged from the prior of 06/08/2018. Sub centimeter nodules were also present on the exam of 03/31/2017 and 08/01/2016. Nodules appear overall stable from 2016 and are highly likely benign. Thyroid gland is slightly enlarged compatible with a m ultinodular goiter. 2. Slight hypervascularity of the thyroid gland. Consider thyroiditis.
== END | disposition home or self-care (01) ==
LOC: RADUSWWP 08:50
PROVIDERS: ATTEND Family Medicine
DX: E04.2 Nontoxic multinodular goiter (principal)
CPT/HCPCS: 76536

== ENCOUNTER → 2019-06-24 | Outpatient (CLI) | payer OTHER ==
--- NOTE | 2019-06-24 10:10 | MM ---
Reason for exam: follow-up at short interval from prior study. Last mammogram was performed 8 months ago. History: Patient is postmenopausal and has history of breast cancer at age 55. Benign MG pre op needle loc LT of the left breast, December 22, 2018. MG discontinued stereo core LT of the left breast, April 23, 2018. Implant in the right breast, July 2016. Reconstructions, 2016. Mastectomy of the right breast, 2016. Chemotherapy, 2016. Radiation therapy of the right breast, 2016. Malignant US biopsy breast VAD RT of the right breast, July 21, 2015. Malignant US biopsy breast add'l VAD RT of the right breast, July 21, 2015. Benign excisional biopsy of the right breast, 2005. Taking antineoplastic for 2 years 6 months beginning at age 55. Physical Findings: Nurse did not find any significant physical abnormalities on exam. MG 3D Diag Mammo W/Cad LT CC, MLO, LM, CC with magnification, and ML with magnification view(s) were taken of the left breast. Prior study comparison: November 03, 2018, left breast MG 3d diag mammo w/cad LT. April 21, 2018, left breast MG 3d diag mammo w/cad LT. The breast tissue is extremely dense which could obscure a lesion on mammography. There is a 5mm group of left upper outer quadrant far posterior depth calcifications on magnification views. These are pleomorphic and linear in distribution. These results were verbally communicated with the patient and result sheet given to the patient on 06/24/19. ASSESSMENT: Suspicious, BI-RAD 4 RECOMMENDATION: Localization and excision of the left breast. (as these are far posterior) Called office with mammographic findings and has scheduled an appointment for the patient for 06/25/19 at 11:[address] Galdamez. PRELIMINARY REPORT CALLED AND FAXED TO DR. GALDAMEZ ON 06/24/19.
== END | disposition home or self-care (01) ==
LOC: RADMAMWWP 08:10
PROVIDERS: ATTEND Surgery
DX: Z08 Encounter for follow-up examination after completed treatment for malignant neoplasm (principal); Z85.3 Personal history of malignant neoplasm of breast
CPT/HCPCS: 77061; 77065

== ENCOUNTER → 2019-06-25 | Outpatient (CLI) | payer OTHER ==
[2019-06-25 12:11] VITALS: BP 124/73; PULSE 73; RESP 18; TEMP 98.5; BMI 23.1
--- NOTE | 2019-06-25 13:06 | P.PN ---
Subjective Progress Note Date: 06/25/19 Chief Complaint: abnormal mammogram The patient is a 58-year-old white female who is status post right breast mastectomy and reconstruction in 2015. The tumor was a stage I but close to the chest wall. She subsequently underwent chemotherapy and is presently on anastrozole. She also had radiation therapy secondary to the location near the chest wall. She underwent radiographic evaluation of the left breast in April 2018. Attention was noted to have some microcalcifications for which stereotactic core biopsy was attempted. The patient was unable to undergo a stereotactic core biopsy secondary to the inability to localize the lesion on the stereotactic table. The patient then underwent a breast MRI which was felt to be benign. She then presented with a repeat mammogram and underwent repeat mammogram the microcalcifications were again visible and felt to be of greater concern. A biopsy was done in December 2018 she underwent a needle local excisional biopsy the area of calcifications. These revealed fibrocystic changes and focal fibroadenoma with multiple dystrophic calcifications. Was negative for malignancy. Most recently the patient has had a repeat left breast mammogram. On repeat left main mammogram there was a 5 mm group of left upper-outer murali drant 5 posterior depth calcifications which were again felt to be pleomorphic linear distribution and suspicious. Secondary to the location needle localization and excision has been recommended. At this time it is recommended that she undergo needle localization and excision the operating removal of the areas of concern in the left breast. The patient herself does not feel anything of concern in her breast. She has no nipple discharge or skin changes. Family history: 1. Mother: Lung cancer 2. Maternal grandmother: cervical cancer 3. patient; right breast cancer 2015 Hormonal history: Menarche: 10 Pregnancies: 3, 3 children breast fed Menopause: 45 Procedure post: 2 years Hormones: Negative Past surgical history: 1. Right eardrum 2. Tonsils and adenoids 2. Right mastectomy and reconstruction 3. left breast biopsy Past medical history: 1. History of breast cancer Social history: Smoke: Negative Alcohol: Negative Drugs: Negative Review of systems: HEENT: Cold sore Lungs: Negative Heart: Negative stress test recently performed GI: Constipation : Negative neuro: feet and ankle stiff psych: none endocrine:thyroid nodules, hypothryoid Musculoskeletal: Negative - Constitutional Constitutional: Denies chills, Denies fever - EENT Eyes: denies blurred vision, denies pain Ears, nose, mouth and throat: Denies headache, Denies sore throat - Breasts Breasts: bilateral: as per HPI - Cardiovascular Cardiovascular: Denies chest pain, Denies shortness of breath - Respiratory Respiratory: Reports as per HPI - Gastrointestinal Gastrointestinal: Reports as per HPI - Genitourinary (Female) Genitourinary: Reports as per HPI - Menstruation Menstruation: Reports postmenopausal - Musculoskeletal Musculoskeletal: Reports as per HPI - Integumentary Integumentary: Reports as per HPI - Psychiatric Psychiatric: Reports as per HPI - Endocrine Comment: thyroid disorder Endocrine: Denies fatigue, Denies weight change - Hematologic/Lymphatic Comment: uses aspirin - Allergic/Immunologic Allergic/Immunologic: Reports seasonal allergies Past Medical History Past Medical History: Cancer, Chest Pain / Angina, Thyroid Disorder Additional Past Medical History / Comment(s): breast cancer , seasonal allergies receives allergy shots History of Any Multi-Drug Resistant Organisms: None Reported Past Surgical History: Breast Surgery, Ear Surgery, Tonsillectomy Additional Past Surgical History / Comment(s): breast biopsy, rt breast mastectomy, colonoscopy, ear drum replaced rt ear Past Anesthesia/Blood Transfusion Reactions: Postoperative Nausea & Vomiting (PONV) Smoking Status: Never smoker Objective - Vital Signs Vital signs: Vital Signs Temp 98.5 F 06/25/19 12:09 Pulse 73 06/25/19 12:09 Resp 18 06/25/19 12:09 BP 124/73 06/25/19 12:09 Pulse Ox 98 06/25/19 12:09 Intake & Output 06/24/19 06/25/19 06/25/19 18:59 06:59 18:59 Weight 61.235 kg - Exam BMI 23.2 - Constitutional General appearance: Present: average body habitus - EENT Eyes: Present: EOMI ENT: Present: hearing grossly normal - Neck Details: no adenopathy Neck: Present: normal ROM - Respiratory Respiratory: bilateral: CTA - Cardiovascular Rhythm: regular Heart sounds: normal: S1, S2 - Gastrointestinal Gastrointestinal Comment(s): no guarding or rebound, normal bowel sounds General gastrointestinal: Present: soft - Integumentary Integumentary: Present: normal turgor - Musculoskeletal Musculoskeletal: Present: gait normal - Psychiatric Psychiatric: Present: A&O x's 3, appropriate affect, intact judgment & insight - Additional findings Additional findings: breast: right breast: Multi-positional exam reveals reconstructed breast after mastectomy no evidence of recurrence on the chest wall Right axilla: No adenopathy of concern Left breast: Well-healed scar from prior biopsied multiple position of the exam no dominant masses or nodules of concern Left axilla: No adenopathy of concern Assessment and Plan Assessment: Impression: 1. Mammographic abnormality left breast 2. Prior right breast mastectomy for stage I breast cancer, patient had chemotherapy and radiation therapy secondary to the posterior location of the lesion she is presently on anastrozole 3. Fibrocystic breast changes 4. Family history of cancer 5. Abi's thyroiditis/autoimmune disease Plan: 1. Left breast needle localization excisional biopsy 2. Continue anastrozole We've had a long conversation regarding the possible results of the biopsy. The patient is also consider prophylactic mastectomy prior to any biopsy. We've also discussed the possibility if this were positive she may need a sentinel node biopsy return trip to the OR. We have reviewed and discussed the radiographic findings with Dr. Mckee the radiologist. At this time the patient understands risks and benefits and wishes to proceed with needle localization left breast with excisional biopsy. If this is positive she will most likely opted for a mastectomy with reconstruction. time 60 minutes > 50% discussion and planning Cc:Dr. Barker
--- NOTE | 2019-08-23 18:16 | P.PN ---
Subjective Progress Note Date: 08/23/19 Chief Complaint: abnormal mammogram The patient is a 58-year-old white female who is status post right breast mastectomy and reconstruction in 2015. The tumor was a stage I but close to the chest wall. She subsequently underwent chemotherapy and is presently on anastrozole. She also had radiation therapy secondary to the location near the chest wall. She underwent radiographic evaluation of the left breast in April 2018. Attention was noted to have some microcalcifications for which stereotactic core biopsy was attempted. The patient was unable to undergo a stereotactic core biopsy secondary to the inability to localize the lesion on the stereotactic table. The patient then underwent a breast MRI which was felt to be benign. She then presented with a repeat mammogram and underwent repeat mammogram the microcalcifications were again visible and felt to be of greater concern. A biopsy was done in December 2018 she underwent a needle local excisional biopsy the area of calcifications. These revealed fibrocystic changes and focal fibroadenoma with multiple dystrophic calcifications. Was negative for malignancy. Most recently 06-24-19, the patient has had a repeat left breast mammogram. On repeat left main mammogram there was a 5 mm group of left upper- outer quadrant 5 posterior depth calcifications which were again felt to be pleomorphic linear distribution and suspicious. Secondary to the location needle localization and excision has been recommended. At this time it is recommended that she undergo needle localization and excision the operating removal of the areas of concern in the left breast. The patient herself does not feel anything of concern in her breast. She has no nipple discharge or skin changes. Family history: 1. Mother: Lung cancer 2. Maternal grandmother: cervical cancer 3. patient; right breast cancer 2015 Hormonal history: Menarche: 10 Pregnancies: 3, 3 children breast fed Menopause: 45 Procedure post: 2 years Hormones: Negative Past surgical history: 1. Right eardrum 2. Tonsils and adenoids 2. Right mastectomy and reconstruction 3. left breast biopsy Past medical history: 1. History of breast cancer Social history: Smoke: Negative Alcohol: Negative Drugs: Negative Review of systems: HEENT: Cold sore Lungs: Negative Heart: Negative stress test recently performed GI: Constipation : Negative neuro: feet and ankle stiff psych: none endocrine:thyroid nodules, hypothryoid Musculoskeletal: Negative - Constitutional Constitutional: Denies chills, Denies fever - EENT Eyes: denies blurred vision, denies pain Ears, nose, mouth and throat: Denies headache, Denies sore throat - Breasts Breasts: bilateral: as per HPI - Cardiovascular Cardiovascular: Denies chest pain, Denies shortness of breath - Respiratory Respiratory: Reports as per HPI - Gastrointestinal Gastrointestinal: Reports as per HPI - Genitourinary (Female) Genitourinary: Reports as per HPI - Menstruation Menstruation: Reports postmenopausal - Musculoskeletal Musculoskeletal: Reports as per HPI - Integumentary Integumentary: Reports as per HPI - Psychiatric Psychiatric: Reports as per HPI - Endocrine Comment: thyroid disorder Endocrine: Denies fatigue, Denies weight change - Hematologic/Lymphatic Comment: uses aspirin - Allergic/Immunologic Allergic/Immunologic: Reports seasonal allergies Past Medical History Past Medical History: Cancer, Chest Pain / Angina, Thyroid Disorder Additional Past Medical History / Comment(s): breast cancer , seasonal allergies receives allergy shots History of Any Multi-Drug Resistant Organisms: None Reported Past Surgical History: Breast Surgery, Ear Surgery, Tonsillectomy Additional Past Surgical History / Comment(s): breast biopsy, rt breast m astectomy, colonoscopy, ear drum replaced rt ear Past Anesthesia/Blood Transfusion Reactions: Postoperative Nausea & Vomiting (PONV) Smoking Status: Never smoker Objective - Vital Signs Vital signs: Vital Signs Temp 98.5 F 06/25/19 12:09 Pulse 73 06/25/19 12:09 Resp 18 06/25/19 12:09 BP 124/73 06/25/19 12:09 Pulse Ox 98 06/25/19 12:09 - Exam BMI 23.2 - Constitutional General appearance: Present: average body habitus - EENT Eyes: Present: EOMI ENT: Present: hearing grossly normal - Neck Neck: Present: normal ROM - Respiratory Respiratory: bilateral: CTA - Cardiovascular Rhythm: regular Heart sounds: normal: S1, S2 - Gastrointestinal General gastrointestinal: Present: normal bowel sounds, soft - Integumentary Integumentary: Present: normal turgor - Musculoskeletal Musculoskeletal: Present: gait normal - Psychiatric Psychiatric: Present: A&O x's 3, appropriate affect, intact judgment & insight - Additional findings Additional findings: Breast examination: Right breast: Multi-positional exam reveals reconstructed breast after mastectomy, no evidence of recurrence on the chest wall Right axilla: No adenopathy of concern Left breast: Well-healed scar from prior biopsy, with multi-positional exam of the breast no dominant masses or nodules of concern Left axilla: No adenopathy of concern Assessment and Plan Assessment: Impression: 1. Mammographic abnormality left breast 2. Prior right breast mastectomy for stage I breast cancer, patient had chemotherapy and radiation therapy secondary to the posterior location of the l esion she is presently on anastrozole 3. Fibrocystic breast changes 4. Family history of cancer 5. Abi's thyroiditis/autoimmune disease Plan: 1. Left breast needle localization excisional biopsy 2. Continue anastrozole We've had a long conversation regarding the possible results of the biopsy. The patient is also consider prophylactic mastectomy prior to any biopsy. We've also discussed the possibility if this were positive she may need a sentinel node biopsy return trip to the OR. We have reviewed and discussed the radiographic findings with Dr. Mckee the radiologist. At this time the patient understands risks and benefits and wishes to proceed with needle localization left breast with excisional biopsy. If this is positive she will most likely opted for a mastectomy with reconstruction. Cc:Dr. Barker
== END | disposition home or self-care (01) ==
LOC: WWCWWP 11:34
PROVIDERS: ATTEND Surgery
DX: Z53.9 Procedure and treatment not carried out, unspecified reason (principal)

== ENCOUNTER 2019-06-30 10:06 | Day surgery (SDC) | payer OTHER ==
[2019-06-28 11:08] VITALS: BMI 22.8
[~2019-06-30 10:06] MED LIST changes: -DEXAMETHASONE SOD PHOSPHATE 10 MG/ML 1 ML VIAL IV ONE; -HEPARIN SODIUM,PORCINE 5,000 UNIT/ML 1 ML VIAL SQ ONE; -HYDROmorphone 0.5 MG/0.5 ML SYRINGE IVP PRN; +LIDOCAINE 1% 20 ML VIAL (10MG/ML) FOR IV START INTRADERMA PRN; -MIDAZOLAM (PF) 2 MG/2 ML VIAL IV PRN; -ONDANSETRON 4 MG/2 ML VIAL IVP ONE; -Pre Op ABX Message 1 EACH MISC MISCELLANE ONE; -SCOPOLAMINE 1.5MG/72HR PATCH TRANSDERM ONE
[2019-06-30 10:53] VITALS: TEMP 98.3
[2019-06-30] MEDS ORDERED: PROPOFOL 10 MG/ML 20 ML VIAL IV ONE (11:10)
--- NOTE | 2019-06-30 11:28 | P.PCN ---
Date of Procedure: 06/30/19 Procedure(s) Performed: BRIEF HISTORY: Patient is a 59-year-old pleasant white female scheduled for an elective colonoscopy as a part of screening for colorectal neoplasia. PROCEDURE PERFORMED: Colonoscopy. PREOPERATIVE DIAGNOSIS: Screening for colon cancer. IV sedation per Anesthesia. PROCEDURE: After informed consent was obtained, the patient, was brought into the endoscopy unit. IV sedation was administered by Anesthesia under continuous monitoring. Digital rectal examination was normal. Initially the Olympus CF-160 flexible video colonoscope was then inserted in the rectum, gradually advanced into the cecum without any difficulty. Careful examination was performed as the scope was gradually being withdrawn. Ileocecal valve and the appendiceal orifice were visualized and appeared normal. Prep was excellent. Mucosa of the cecum, ascending colon, transverse colon, descending colon, sigmoid colon, and rectum appeared normal. Retroflexion was performed in the rectum and no lesions were seen. The patient tolerated the procedure well. IMPRESSION: Normal-appearing colon from rectum to cecum with no evidence of colorectal neoplasia . RECOMMENDATIONS: Findings of this examination were discussed with the patient well as her family. She was advised to have a repeat screening colonoscopy in 10 years.
[2019-06-30 11:47] VITALS: BP 122/75; PULSE 78; RESP 17
== END 2019-06-30 12:24 | disposition home or self-care (01) ==
LOC: ORWHC2ENDO 10:06
PROVIDERS: ATTEND Internal Medicine Gastroenterology
DX: Z12.11 Encounter for screening for malignant neoplasm of colon (principal); E07.9 Disorder of thyroid, unspecified; C50.911 Malignant neoplasm of unspecified site of right female breast; Z90.11 Acquired absence of right breast and nipple; Z79.811 Long term (current) use of aromatase inhibitors; Z79.82 Long term (current) use of aspirin; Z79.890 Hormone replacement therapy; Z79.899 Other long term (current) drug therapy; Z91.09 Other allergy status, other than to drugs and biological substances
CPT/HCPCS: J2704; G0121

== ENCOUNTER 2019-08-24 07:22 | Day surgery (SDC) | payer OTHER ==
[2019-08-16 14:43] VITALS: BMI 22.3
[~2019-08-24 07:22] MED LIST changes: +DEXAMETHASONE SOD PHOSPHATE 10 MG/ML 1 ML VIAL IV ONE; +HEPARIN SODIUM,PORCINE 5,000 UNIT/ML 1 ML VIAL SQ ONE; +HYDROmorphone 0.5 MG/0.5 ML SYRINGE IVP PRN; +MIDAZOLAM 2 MG/2 ML VIAL IV PRN; +ONDANSETRON 4 MG/2 ML VIAL IVP ONE; +Pre Op ABX Message 1 EACH MISC MISCELLANE ONE; +SCOPOLAMINE 1.5MG/72HR PATCH TRANSDERM ONE
[2019-08-24] MEDS ORDERED: ALPRAZolam 0.25 MG TAB PO ONE (07:49)
[2019-08-24] MEDS ORDERED: LIDOCAINE 1% INJ 10MG/ML (20 ML MDV) SQ ONE ×2 (09:02→09:21)
[2019-08-24] MEDS ORDERED: PROPOFOL 10 MG/ML 20 ML VIAL IV ONE (10:35)
[2019-08-24] MEDS ORDERED: fentaNYL (PF) 50 MCG/ML 2 ML AMP ONE (10:35)
[2019-08-24] MEDS ORDERED: MIDAZOLAM 2 MG/2 ML VIAL ONE (10:35)
[2019-08-24] MEDS ORDERED: ePHEDrine SULFATE/0.9% NACL/PF 50 MG/5 ML SYRINGE IV ONE (10:35)
[2019-08-24] MEDS ORDERED: LIDOCAINE 1% INJ 10MG/ML (20 ML MDV) ONE (10:35)
[2019-08-24] MEDS ORDERED: LIDOCAINE 1% 20 ML VIAL (10MG/ML) FOR IV START SQ ONE ×2 (11:19→11:47)
--- NOTE | 2019-08-24 11:51 | P.OP ---
Date of Procedure: 08/24/19 Preoperative Diagnosis: Mammographic abnormality left breast/suspicious microcalcifications Postoperative Diagnosis: Same Procedure(s) Performed: Left breast needle local excisional biopsy Anesthesia: SYLVIEA Surgeon: Dior Galdamez Estimated Blood Loss (ml): 5 IV fluids (ml): 500 Pathology: other (Breast tissue) Condition: stable Disposition: same day Indications for Procedure: Microcalcifications of concern left breast, too far posterior for stereo biopsy Operative Findings: Fibrofatty breast tissue Description of Procedure: The patient is a 59-year-old white female with microcalcifications of concern noted in her left breast. These are too far posterior for stereotactic core biopsy and it was recommended she undergo needle local excisional biopsy. The patient was taken to the operating room following needle localization of the area of concern in the left breast. Following induction of general anesthesia the left breast was prepped and draped in a sterile fashion. Incision was made and carried down to the shaft of the needle. The tissue surrounding this was grasped using an Allis clamp. Circumferential resection was performed. The specimen was painted for orientation. Radiograph of the specimen revealed the area of concern had been removed. Dissection was performed down onto the pectoralis major muscle. Following this the wound was evaluated for hemostasis. When we were assured that this was attained titanium clips were placed to erlinda the area of resection. The deep tissues were closed with 3-0 Vicryl suture. The skin was closed with 4-0 running Monocryl. The patient tolerated the procedure in stable condition. All instrument and sponge counts were correct at the end of the case.
--- NOTE | 2019-08-24 11:53 | P.DS ---
Providers Attending physician: Dior Galdamez Primary care physician: Gudelia Barker Plan - Discharge Summary Discharge Rx Participant: No New Discharge Prescriptions: No Action Levothyroxine Sodium [Synthroid] 75 mcg PO QAM Anastrozole [Arimidex] 1 mg PO HS Cyanocobalamin [Vitamin B-12] 500 mcg PO DAILY Cholecalciferol [Vitamin D3] 2,000 unit PO DAILY Loratadine 10 mg PO DAILY PRN PRN Reason: Allergy Symptoms Aspirin 81 mg PO DAILY Allergy Shots 1 dose SQ WEEKLY Discharge Medication List Levothyroxine Sodium [Synthroid] 75 mcg PO QAM 08/16/15 [History] Anastrozole [Arimidex] 1 mg PO HS 07/19/16 [History] Cholecalciferol [Vitamin D3] 2,000 unit PO DAILY 07/19/16 [History] Cyanocobalamin [Vitamin B-12] 500 mcg PO DAILY 07/19/16 [History] Loratadine 10 mg PO DAILY PRN 04/22/18 [History] Aspirin 81 mg PO DAILY 11/20/18 [History] Allergy Shots 1 dose SQ WEEKLY 06/28/19 [History] Follow up Appointment(s)/Referral(s): Dior Galdamez MD [STAFF PHYSICIAN] - 1 Week Activity/Diet/Wound Care/Special Instructions: Do not drive today Wear bra at all times May shower after 48 hours Discharge Disposition: HOME SELF-CARE
[2019-08-24 12:10] VITALS: TEMP 98.2
[2019-08-24 12:32] VITALS: RESP 16
[2019-08-24 12:55] VITALS: BP 134/77
[2019-08-24 13:19] VITALS: PULSE 100
--- NOTE | 2019-08-24 15:20 | MM ---
EXAMINATION TYPE: MG surgical specimen LT, MG pre op needle loc LT DATE OF EXAM: 08/24/2019 COMPARISON: 06/24/2019 CLINICAL HISTORY: Left breast calcifications for which stereotactic guided biopsy could not be performed given the posterior depth and for which needle localization was recommended TECHNIQUE: Needle localization with wire placement and surgical excision of area of concern in the left breast. FINDINGS: The procedure of needle localization with wire placement and than surgical excision was explained to the patient. Benefits, alternatives, and risks were discussed. An informed consent was then obtained. Preprocedural timeout was performed. Initially the pathway demonstrating the best visualization of the calcifications was attempted (craniocaudal from above with exaggerated CC) however this was unsuccessful given the posterior depth and patient positioning. The shortest pathway for procedure was then chosen. Shortest pathway was lateral medial approach. The overlying skin was prepped and draped in usual sterile fashion. 10 cc of 1% lidocaine was used as anesthetic into the skin and subcutaneous tissue up to the level of area of concern. A 5 cm needle was used. It was placed via a lateral to medial approach under mammographic guidance. Subsequent 90 degrees mammogram show the needle to be in satisfactory position relative to the targeted area. At this point, wire was placed and the needle was withdrawn. The wire was fixed to patient's skin. Images were marked for surgeon. The patient tolerated the procedure well without any immediate complication. The patient was kept in the radiology department for short stay after the procedure and then taken to surgery for surgical excision. Targeted calcifications and wire are identified in specimen mammogram. The patient was kept in hospital for short stay after the procedure and then discharged home in stable condition. IMPRESSION: Successful, uncomplicated needle localization with wire placement and surgical excision of suspicious group of calcifications in the left breast, full pathology results to follow. Pathology Results: High Risk LEFT BREAST, NEEDLE LOCALIZED BIOPSY: Lobular neoplasia/LCIS in a background of fibrocystic spectrum disease with focal post surgical changes, intraductal mineralizations and metaplastic changes. Negative for evidence of neoplasm. Recommendation Follow up mammogram of the left breast in 6 months. MTDD
== END 2019-08-24 13:31 | disposition home or self-care (01) ==
LOC: OR 07:22
PROVIDERS: ATTEND Surgery
DX: D05.02 Lobular carcinoma in situ of left breast (principal); E06.3 Autoimmune thyroiditis; N60.12 Diffuse cystic mastopathy of left breast; J30.2 Other seasonal allergic rhinitis; Z91.048 Other nonmedicinal substance allergy status; Z79.890 Hormone replacement therapy; Z79.899 Other long term (current) drug therapy; Z79.82 Long term (current) use of aspirin; Z98.890 Other specified postprocedural states; Z85.3 Personal history of malignant neoplasm of breast; Z92.21 Personal history of antineoplastic chemotherapy; Z92.3 Personal history of irradiation; Z80.1 Family history of malignant neoplasm of trachea, bronchus and lung; Z80.49 Family history of malignant neoplasm of other genital organs; Z90.89 Acquired absence of other organs
CPT/HCPCS: 19125; 88307; 76098; 19281; J2250; J1644; J1100; J2405; J2001; J3010; J2704

== ENCOUNTER → 2019-09-02 | Outpatient (CLI) | payer OTHER ==
[2019-09-02 14:18] VITALS: BP 115/74; PULSE 75; RESP 18; TEMP 97.9
--- NOTE | 2019-09-02 15:09 | P.PN ---
Progress Note - Text Progress Note Date: 09/02/19 Joanna is a 59-year-old white female status post left breast needle local excisional biopsy. Pathology revealed lobular carcinoma in situ. Of concern is the fact that the patient has had a previous right breast invasive ductal and infiltrating lobular carcinoma treated with a mastectomy. The patient is considering a prophylactic left mastectomy. We have talked about the option of reconstruction and she is going to consider this as well. The patient is also been given the option of close surveillance. Physical exam: Lungs: Clear Heart: Regular rate and rhythm Incision: Clean and dry Impression: 1. Left breast excisional biopsy lobular carcinoma in situ 2. Prior right breast invasive ductal/infiltrating lobular carcinoma treated with mastectomy/radiation/chemotherapy/and is presently on anastrozole 3. The area of concern in the left breast developed while the patient was on a nastrozole Plan: 1. Present case at tumor board 2. Patient is going to consider prophylactic left breast mastectomy 3. Follow-up in 4 months for physical exam 5. Left breast mammogram in 6 months CC: Dr Barker
== END | disposition home or self-care (01) ==
LOC: WWCWWP 13:34
PROVIDERS: ATTEND Surgery
DX: Z53.9 Procedure and treatment not carried out, unspecified reason (principal)

== ENCOUNTER → 2020-02-24 | Outpatient (CLI) | payer OTHER ==
[2020-02-25 10:03] VITALS: BP 137/83; PULSE 83; RESP 18; TEMP 98.1
== END | disposition home or self-care (01) ==
LOC: WWCWWP 09:27
PROVIDERS: ATTEND Surgery
DX: Z53.9 Procedure and treatment not carried out, unspecified reason (principal)

== ENCOUNTER → 2020-02-24 | Outpatient (CLI) | payer OTHER ==
--- NOTE | 2020-02-24 11:04 | P.PN ---
Subjective Progress Note Date: 02/24/20 Principal diagnosis: stage I right breast cancer/ left breast LCIS The patient is a 59-year-old white female who is status post right breast mastectomy and reconstruction in 2015. Mastectomy at that time revealed multiple foci of invasive cancer at least 7, the largest 1.1 cm, multiple foci of grade 3 invasive lobular carcinoma, and extensive DCIS. She subsequently started adjuvant TC and completed 4 cycles and 4716. She started Arimidex and 5116. The tumor was a stage I but close to the chest wall. She subsequently underwent chemotherapy and is presently on anastrozole. She also had radiation therapy secondary to the location near the chest wall. She underwent radiographic evaluation of the left breast in April 2018. Attention was noted to have some microcalcifications for which stereotactic core biopsy was attempted. The patient was unable to undergo a stereotactic core biopsy secondary to the inability to localize the lesion on the stereotactic table. The patient then underwent a breast MRI which was felt to be benign. She then presented with a repeat mammogram and underwent repeat mammogram the microcalcifications were again visible and felt to be of greater concern. She than underwent a needle localization and excisional on 08-24-19 in the operating room for removal of the areas of concern in the left breast. The pathology revealed LCIS. The patient herself does not feel anything of concern in her breast. She has no nipple discharge or skin changes. The patient had considered a left mastectomy however with the gerber virus pandemic everything was placed on hold. She is here for evaluation again regarding this considera tion. The patient does not have any new lumps masses or nodules for which she is concerned in her breast. She had a repeat mammogram performed today and we are awaiting those results. She was told that she could have repeat mammogram in 1 year. I'm awaiting reading by the radiologist. Family history: 1. Mother: Lung cancer 2. Maternal grandmother: Uterine cancer 3. Paternal grandmother: Colon cancer Hormonal history: Menarche: 10 Pregnancies: 3, 3 children breast fed Menopause: 45 Procedure post: 2 years Hormones: Negative Past surgical history: 1. Right eardrum 2. Tonsils and adenoids 2. Right mastectomy and reconstruction Past medical history: 1. History of breast cancer 2. Abi's thyroiditis Social history: Smoke: Negative Alcohol: Negative Drugs: Negative Review of systems: HEENT: occasional cold sore on edge of nose Lungs: Negative Heart: Negative stress test recently performed/ was all OK GI: Constipation improved : Negative, post menopausal on Anestrazole Musculoskeletal: feet ? arthritis Allergies: as above, seasonal Neurologic: Negative Hematologic: Negative Psychiatric: Negative - Constitutional Constitutional: Denies chills, Denies fever - EENT Eyes: denies blurred vision, denies pain Ears, nose, mouth and throat: Denies headache, Denies sore throat - Breasts Breasts: bilateral: as per HPI - Cardiovascular Cardiovascular: Denies chest pain, Denies shortness of breath - Respiratory Respiratory: Reports as per HPI - Gastrointestinal Gastrointestinal: Reports as per HPI - Genitourinary (Female) Genitourinary: Reports as per HPI - Menstruation Menstruation: Reports postmenopausal - Musculoskeletal Musculoskeletal: Reports as per HPI - Integumentary Integumentary: Reports as per HPI - Psychiatric Psychiatric: Reports as per HPI - Endocrine Comment: thyroid disorder Endocrine: Denies fatigue, Denies weight change - Hematologic/Lymphatic Comment: uses aspirin - Allergic/Immunologic Allergic/Immunologic: Reports seasonal allergies Objective - Constitutional General appearance: Present: average body habitus - EENT Eyes: Present: EOMI ENT: Present: hard of hearing - Neck Neck: Present: normal ROM - Respiratory Respiratory: bilateral: CTA - Cardiovascular Rhythm: regular Heart sounds: normal: S1, S2 - Gastrointestinal General gastrointestinal: Present: normal bowel sounds, soft - Integumentary Integumentary: Present: normal turgor - Musculoskeletal Musculoskeletal: Present: gait normal - Psychiatric Psychiatric: Present: A&O x's 3, appropriate affect, intact judgment & insight - Additional findings Additional findings: Breast exam: BRA 36B inspection: Right breast reconstructed no evidence of recurrence and the skin, left breast status post biopsy ptosis grade 1 Palpation: Right breast: Examination of chest wall no evidence of recurrent cancer Right axilla: No adenopathy of concern Left breast: Multiple position exam no dominant masses or nodules of concern Left axilla: No adenopathy of concern Assessment and Plan Assessment: Impression/Plan: 1. Status post right breast mastectomy stage I right breast cancer/patient has had chemotherapy and radiation therapy she is presently on anastrozole 2. Awaiting results of mammogram which was performed on 7919/if this shows lesions of concern the patient would lead to consider mastectomy, if this does not show further lesions of concern the patient will consider conservative management and be followed closely 3. If we do not proceed with surgical intervention. Recommend repeat physical exam in 6 months time patient does be seen sooner if any questions of concern CC: Dr. Dr. Barker encounter 25 minutes, > 50% of time in planning and counselling
--- NOTE | 2020-02-24 11:18 | MM ---
Reason for exam: additional evaluation requested from prior study. Last mammogram was performed 8 months ago. History: Patient is postmenopausal, has history of high-risk lesion on a previous biopsy at age 59, and has history of breast cancer at age 55. High risk MG pre op needle loc LT of the left breast, August 24, 2019. Benign MG pre op needle loc LT of the left breast, December 22, 2018. MG discontinued stereo core LT of the left breast, April 23, 2018. Implant in the right breast, July 2016. Reconstructions, 2016. Mastectomy of the right breast, 2016. Chemotherapy, 2016. Radiation therapy of the right breast, 2016. Malignant US biopsy breast VAD RT of the right breast, July 21, 2015. Malignant US biopsy breast add'l VAD RT of the right breast, July 21, 2015. Benign excisional biopsy of the right breast, 2005. Taking antineoplastic for 2 years 6 months beginning at age 55. Physical Findings: Nurse did not find any significant physical abnormalities on exam. MG 3D Diag Mammo W/Cad LT CC and MLO view(s) were taken of the left breast. Prior study comparison: June 24, 2019, left breast MG 3d diag mammo w/cad LT. November 03, 2018, left breast MG 3d diag mammo w/cad LT. The breast tissue is heterogeneously dense. This may lower the sensitivity of mammography. Post surgical change redemonstrated left breast. No suspicious calcifications, discrete mass or other abnormality seen. These results were verbally communicated with the patient and result sheet given to the patient on 02/24/20. ASSESSMENT: Benign, BI-RAD 2 RECOMMENDATION: Routine screening mammogram of both breasts in 1 year.
== END | disposition home or self-care (01) ==
LOC: RADMAMWWP 09:28
PROVIDERS: ATTEND Surgery
DX: R92.8 Other abnormal and inconclusive findings on diagnostic imaging of breast (principal); Z90.11 Acquired absence of right breast and nipple; Z98.82 Breast implant status
CPT/HCPCS: 77061; 77065

== ENCOUNTER → 2020-02-24 | Outpatient (CLI) | payer OTHER ==
--- NOTE | 2020-02-24 16:36 | BD ---
EXAMINATION TYPE: Axial Bone Density DATE OF EXAM: 02/24/2020 COMPARISON: 12.22.2017 CLINICAL HISTORY: 59 YR OLD FEMALE....ICD-10 CODE: N95.1 POST MENOPAUSAL Height: 63.5 Weight: 133 FRAX RISK QUESTIONS: NOTHING TO NOTE HERE RISK FACTORS HISTORY OF: Family History of Osteoporosis: UNKNOWN Active: YES Diet low in dairy products/other sources of calcium: YES Postmenopausal woman: YES, AT 49 YRS OLD Hyperparathyroidism: NO Adrenal Insufficiency: NO MEDICATIONS: Thyroid Medications: YES, SYNTHROID, FOR ABOUT 6+ YRS Additional Medications: HX OF CHEMO AND RADIATION, 2016, VIT D3, ANASTROZOLE Additional History: RT BREAST CANCER, MASTECTOMY, EXAM MEASUREMENTS: Bone mineral densitometry was performed using the [employer] System. Bone mineral density as measured about the Lumbar spine is: ----- L1-L4(G/cm2): 1.363 T Score Values are as follows: ----- L1: 1.5 ----- L2: 1.4 ----- L3: 1.7 ----- L4: 1.4 ----- L1-L4: 1.5 Bone mineral density has: Increased 5.1% since study of: 12.22.2017 Bone mineral density about the R hip (g/cm2): 0.973 Bone mineral density about the L hip (g/cm2): 0.992 T Score values are as follows: -----R Neck: -1.1 -----L Neck: -0.9 -----R Total: -0.3 -----L Total: -0.1 Bone mineral density has: Decreased -2.0% since study of: 12.22.2017 FRAX%s: THERE IS A 7.3% CHANCE FOR A MAJOR OSTEOPOROTIC FX AND A 0.5% FOR HIP.....PROBABILITY FOR F X IN 10 YRS TIME IMPRESSION: Osteopenia (T Score between -2.5 and -1). There is slightly increased risk of fracture and the patient may be considered for treatment. Re-Screen 2-5 years. NOTE: T-SCORE=SD OF THE YOUNG ADULT MEAN.
== END | disposition home or self-care (01) ==
LOC: RADBDWWP 11:10
PROVIDERS: ATTEND Family Medicine
DX: M85.80 Other specified disorders of bone density and structure, unspecified site (principal); N95.1 Menopausal and female climacteric states
CPT/HCPCS: 77080

== ENCOUNTER → 2020-08-01 | Outpatient (CLI) | payer OTHER ==
--- NOTE | 2020-08-01 11:55 | BMR ---
EXAMINATION TYPE: MR breast BILAT wo/w con DATE OF EXAM: 08/01/2020 COMPARISON: Prior MRI bilateral breasts April 25, 2018. 3-D diagnostic left breast mammogram February 24, 2020 BI-RADS 2. HISTORY: Abnormal mamm early 2019, follow up for prior imaging results. History of right-sided breast cancer and mastectomy 2016. History of high risk left-sided biopsy recently. Lobular neoplasia/LCIS on excision August 24, 2019. Benign excisional left breast December 22, 2018. TECHNIQUE: A series of fat and water weighted images in the long and short axis views of both breasts are obtained in conjunction with dynamic contrast MRI with subtraction technique. The patient was i njected with 6 mL intravenous Gadavist gadolinium contrast. Three-dimensional and additional postpr ocessing imaging is created on independent workstation and reviewed during official interpretation of this study. FINDINGS: Heterogeneously dense fibroglandular tissue in the left breast is identified correlating wi th mammograms. Slight lateral positioning of the nipple is noted. T2 and STIR weighted images show no suspicious cystic change in either breast. There is right breast mastectomy and implant redemonstrat ed. No suspicious new enhancing masses. No suspicious axillary adenopathy identified bilaterally. Dyn amic postcontrast images show moderate to severe background enhancement with few prominent vessels in cluding a altered vessel extending to the nipple. Nonspecific nipple enhancement is identified. Delay ed postcontrast images show no suspicious internal mammary adenopathy bilaterally. There is 1.1 cm low-density lesion in the hepatic dome that shows delayed homogeneous enhancement estella ge 69 series 801. With regards to the left breast. Artifact from surgical clips in the posterior depth outer aspect are identified. No asymmetric increased skin thickening is seen. Chest wall is intact. No pathologic enh ancement or enhancing masses are noted. IMPRESSION: Interval lumpectomy changes left breast from prior MRI. No new areas of suspicious enhanc ement to suggest invasive malignancy in either breast. Stable right-sided implant noted. BI-RADS 2 benign findings. Recommendation: Patient is due for left breast diagnostic mammogram February 2021 to be back on annual schedule
== END | disposition home or self-care (01) ==
LOC: RADMRIMAIN 08:54
PROVIDERS: ATTEND Internal Medicine Hematology & Oncology
DX: C50.811 Malignant neoplasm of overlapping sites of right female breast (principal); Z98.890 Other specified postprocedural states
CPT/HCPCS: 77049; C8937; A9585

== ENCOUNTER → 2021-02-26 | Outpatient (CLI) | payer OTHER ==
--- NOTE | 2021-02-26 11:24 | MM ---
Reason for exam: additional evaluation requested from prior study. Last mammogram was performed 1 year ago. History: Patient is postmenopausal, has history of high-risk lesion on a previous biopsy at age 59, and has history of breast cancer at age 55. High risk MG pre op needle loc LT of the left breast, August 24, 2019. Benign MG pre op needle loc LT of the left breast, December 22, 2018. MG discontinued stereo core LT of the left breast, April 23, 2018. Implant in the right breast, July 2016. Reconstructions, 2016. Mastectomy of the right breast, 2016. Chemotherapy, 2016. Radiation therapy of the right breast, 2016. Malignant US biopsy breast VAD RT of the right breast, July 21, 2015. Malignant US biopsy breast add'l VAD RT of the right breast, July 21, 2015. Benign excisional biopsy of the right breast, 2005. Taking antineoplastic for 5 years beginning at age 55. Physical Findings: Nurse did not find any significant physical abnormalities on exam. MG 3D Diag Mammo W/Cad LT CC and MLO view(s) were taken of the left breast. Prior study comparison: February 24, 2020, left breast MG 3d diag mammo w/cad LT. April 21, 2018, left breast MG 3d diag mammo w/cad LT. The breast tissue is heterogeneously dense. This may lower the sensitivity of mammography. Post operative change left breast. Stable post right mastectomy. These results were verbally communicated with the patient and result sheet given to the patient on 02/26/21. ASSESSMENT: Benign, BI-RAD 2 RECOMMENDATION: Follow-up diagnostic mammogram of the left breast in 1 year.
== END | disposition home or self-care (01) ==
LOC: RADMAMWWP 10:12
PROVIDERS: ATTEND Internal Medicine Hematology & Oncology
DX: R92.2 Inconclusive mammogram (principal); Z85.3 Personal history of malignant neoplasm of breast; Z78.0 Asymptomatic menopausal state; Z90.11 Acquired absence of right breast and nipple
CPT/HCPCS: 77061; 77065

== ENCOUNTER → 2023-10-03 | Outpatient (CLI) | payer MEDICARE, OTHER ==
[2023-10-03 10:25] VITALS: BP 122/82; PULSE 77; RESP 17; TEMP 97.8
--- NOTE | 2023-10-03 10:52 | P.GSHP ---
History of Present Illness H&P Date: 10/03/23 Chief Complaint: right breast invasive ductal cancer 2016 stage I right breast cancer/ left breast LCIS The patient is a 63-year-old white female who is status post right breast mastectomy and reconstruction in 2015. Mastectomy at that time revealed multiple foci of invasive cancer at least 7 sites, the largest 1.1 cm, multiple foci of grade 3 invasive lobular carcinoma, and extensive DCIS, one node (-). She subsequently started adjuvant TC and completed 4 cycles on 4715. She started Arimidex on 5115. The tumor was a stage I but close to the chest wall. She subsequently underwent chemotherapy and was treated with on anastrozole. She also had radiation therapy secondary to the location near the chest wall completing this on 01-26-16. She underwent radiographic evaluation of the left breast in April 2018. Attention was noted to have some microcalcifications for which stereotactic core biopsy was attempted. The patient was unable to undergo a stereotactic core biopsy secondary to the inability to localize the lesion on the stereotactic table. The patient then underwent a breast MRI which was felt to be benign. She then presented with a repeat mammogram and underwent repeat mammogram the microcalcifications were again visible and felt to be of greater concern. She than underwent a needle localization and excisional on 08-24-19 in the operating room for removal of the areas of concern in the left breast. The pathology revealed LCIS. The patient herself did not feel anything of concern in her breast. She has no nipple discharge or skin changes. The patient had considered a left mastectomy however with the gerber virus pandemic everything was placed on hold. The patient continued to follow with mammograms of both breast, and on 08-26-23 surveillence MRI was preformed in [place]. An 8 mm lesion was noted in the upper inner right breast. A biopsy was (+) for invasive ductal cancer. ER+NV+Her2-. Genetic testing + CHECK mutation in her daughter; patient has had genetic testing but the results are not yet back daughter recently diagnosed with breast cancer at 37 The patient would like to have bilateral mastectomy without reconstruction. Presently on raloxifene, prior to that she was on anastrozole for [address] Carmen 09-30-23 reviewed, bone scan and CT ordered; pending; discussed this personally with Dr. Carmen Patient just diagnosed with Parkinsons disease. Diagnosed at [facility]. Family history: 1. Mother: Lung cancer 2. Maternal grandmother: Uterine cancer 3. Paternal grandmother: Colon cancer 4. patient breast cancer 5. daughter: breast cancer Hormonal history: Menarche: 10 Pregnancies: 3, 3 children breast fed Menopause: 45 Procedure post: 2 years Hormones: Negative Past surgical history: 1. Right eardrum 2. Tonsils and adenoids 2. Right mastectomy and reconstruction Past medical history: 1. History of breast cancer 2. Abi's thyroiditis 3. new diagnosis of Parkinsons/ tremor Social history: Smoke: Negative Alcohol: Negative Drugs: Negative - Constitutional Constitutional: Denies chills, Denies fever - EENT Comment: visual flashes unknown cause Eyes: denies blurred vision, denies pain Ears: deny: decreased hearing Ears, nose, mouth and throat: Denies headache, Denies sore throat - Breasts Breasts: bilateral: as per HPI - Cardiovascular Cardiovascular: Denies chest pain, Denies shortness of breath - Respiratory Respiratory: Denies cough, Denies 7 - Gastrointestinal Gastrointestinal: Reports constipation, Denies abdominal pain, Denies diarrhea, Denies nausea, Denies vomiting - Genitourinary (Female) Genitourinary: Denies dysuria, Denies hematuria - Menstruation Menstruation: Reports postmenopausal - Musculoskeletal Comment: stiffness from Parkinsons - Integumentary Integumentary: Denies pruritus, Denies rash - Neurological Comment: Parkinsons Neurological: Reports as per HPI, Reports numbness - Psychiatric Psychiatric: Reports anxiety, Denies depression - Endocrine Endocrine: Denies fatigue, Denies weight change - Hematologic/Lymphatic Comment: none - Allergic/Immunologic Allergic/Immunologic: Reports seasonal allergies Past Medical History Past Medical History: Cancer, Thyroid Disorder Additional Past Medical History / Comment(s): Right breast cancer 2016 with surgery, chemo & radiation tx., seasonal allergies receives allergy shots (Dr Bradford), History of Any Multi-Drug Resistant Organisms: None Reported Past Surgical History: Breast Surgery, Ear Surgery, Tonsillectomy Additional Past Surgical History / Comment(s): breast biopsy x3, rt breast mastectomy with reconstruction, colonoscopy, ear drum replaced rt ear, PARKINSONS Past Anesthesia/Blood Transfusion Reactions: Postoperative Nausea & Vomiting (PONV) Past Psychological History: No Psychological Hx Reported Smoking Status: Never smoker Past Alcohol Use History: Occasional Past Drug Use History: None Reported - Past Family History Mother Family Medical History: Cancer Additional Family Medical History / Comment(s): lung cancer Medications and Allergies Home Medications Medication Instructions Recorded Confirmed Type Cholecalciferol [Vitamin D3] 2,000 unit PO DAILY 07/19/16 10/03/23 History Cyanocobalamin [Vitamin B-12] 500 mcg PO DAILY 07/19/16 10/03/23 History Aspirin 81 mg PO DAILY 11/20/18 10/03/23 History Allergies Allergy/AdvReac Type Severity Reaction Status Date / Time adhesive AdvReac red skin Verified 10/03/23 10:00 Surgical - Exam Vital Signs Temp Pulse Resp BP Pulse Ox 97.8 F 77 17 122/82 97 10/03/23 10:01 10/03/23 10:10/03/23 10:01 10/03/23 10:01 10/03/23 10:01 - General moderate distress - Eyes normal ocular movement - Neck trachea midline - Respiratory normal respiratory effort - Cardiovascular Rhythm: regular Heart Sounds: normal: S1, S2 - Abdomen Abdomen: soft, non tender, no guarding, no rigid, no rebound - Integumentary normal turgor - Neurologic tremor - Musculoskeletal normal gait - Psychiatric oriented to time, oriented to person, oriented to place, speech is normal, memory intact Breast Exam: BRA: 36B Inspection: Right breast mastectomy/reconstruction, well-healed scar, left breast grade 2 ptosis Palpation: Right breast: Multi positional exam of chest wall no obvious evident recurrence Right axilla: No adenopathy of concern Left breast: Multi positional exam no dominant masses or nodules of concern Left axilla: No adenopathy of concern Assessment and Plan Assessment: Impression: Patient's status post right mastectomy with sentinel node biopsy in 2016 for stage Ia invasive ductal multifocal carcinoma Patient has done well until recently when an MRI revealed an 8 mm lesion in the upper inner quadrant of the right reconstructed breast. Biopsy was consistent with invasive ductal carcinoma Recently diagnosed with Parkinson's disease Plan: Presentation of case at tumor board Will discussed with patient and her treatment options CC: Suma Mendoza [facility]
== END ==
LOC: WWCWWP 09:14
PROVIDERS: ATTEND Surgery
DX: C50.911 Malignant neoplasm of unspecified site of right female breast (principal); C50.912 Malignant neoplasm of unspecified site of left female breast; G20.A1 Parkinson's disease without dyskinesia, without mention of fluctuations; E06.3 Autoimmune thyroiditis; Z79.82 Long term (current) use of aspirin; Z91.048 Other nonmedicinal substance allergy status; Z17.0 Estrogen receptor positive status [ER+]

== ENCOUNTER → 2023-10-09 | Outpatient (CLI) | payer MEDICARE, OTHER ==
[2023-10-09 09:26] LABS: African American GFR (CKD) 79 (>60 ml/min/1.73 sqM); Blood Urea Nitrogen 15 mg/dL (7-17); Non-African American GFR(CKD) 68 (>60 ml/min/1.73 sqM)
--- NOTE | 2023-10-09 14:50 | CT ---
EXAMINATION TYPE: CT ChestAbdPelvis w con DATE OF EXAM: 10/09/2023 INDICATION: f/u breast ca COMPARISON: None CT DLP: 1222 mGycm CONTRAST: Performed with Oral Contrast and with IV Contrast, patient injected with 100 mL of Isovue 300. TECHNIQUE: Axial images at 5 mm thick sections. Reconstructed images in the coronal plane. Delayed images through the kidneys. FINDINGS: CT CHEST: There is a right breast prosthesis. Portion of the thyroid visualized is normal. No suspicious lung nodules or focal infiltrates are present. No enlarged mediastinal or hilar adenopathy is evident. The ascending aorta diameter at the level of the main pulmonary artery is 2.7 cm. The main pulmonary artery diameter at the bifurcation is 2.[address] ABDOMEN: Liver: Normal Spleen: Normal Pancreas: Normal. Pancreatic duct is at the upper limits for normal for size. Adrenal glands: The adrenal glands are normal. Gallbladder: Normal Kidneys: No masses are evident. No hydronephrosis is present. No cysts are present. Delayed images were obtained through the kidneys, which remain unremarkable. Aorta: Vascular calcification is within the aorta. Inferior vena cava: Normal. CT PELVIS: Loops of bowel within the abdomen and pelvis are normal. Fecal debris is throughout the redundant sig moid colon. There is fecal debris within the ascending colon region. There are loops of bowel lacking oral contrast or incompletely distended limiting their evaluation. Appendix: Not identified. No dilated tubular structure or inflammatory change is evident. Urinary bladder: Normal. Genitourinary structures: Uterus and adnexa appear within normal limits Osseous structures: No suspicious lytic or sclerotic lesions. IMPRESSION: 1. No suspicious changes suggest metastatic breast cancer. 2. Moderate fecal retention through the sigmoid colon.
--- NOTE | 2023-10-09 14:51 | NM ---
EXAMINATION TYPE: NM bone scan whole body DATE OF EXAM: 10/09/2023 COMPARISON: NONE CLINICAL INDICATION: Female, 63 years old with history of C50.811 breast ca; Delayed whole-body scanning was performed following the injection of 22 mCi Tc 99m MDP. Images acqui red 3 hours post injection. FINDINGS: Abnormal uptake in the nonspecific. Faint uptake along the lateral right lateral rib cage at the approximate ninth rib. IMPRESSION: 1. Nonspecific uptake involving the mandible possibly in the bases. Optimal disease. Consider x-ray c orrelation. 2. Faint uptake lateral proximal right ninth rib. X-ray correlation recommended 3. No definitive diagnostic evidence of metastasis.
== END | disposition home or self-care (01) ==
LOC: RADCTMAIN 08:40
PROVIDERS: ATTEND Internal Medicine Hematology & Oncology
DX: C50.811 Malignant neoplasm of overlapping sites of right female breast (principal); K56.41 Fecal impaction; R93.89 Abnormal findings on diagnostic imaging of other specified body structures
CPT/HCPCS: 82565; 84520; 71260; 74177; 36415; 78306; Q9967

== ENCOUNTER → 2023-11-21 | Outpatient (CLI) | payer MEDICARE, OTHER ==
--- NOTE | 2023-11-21 10:12 | P.BCPRE ---
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 Mastectomy at that time revealed multiple foci of invasive cancer at least 7 sites, the largest 1.1 cm, multiple foci of grade 3 invasive lobular carcinoma, and extensive DCIS, one node (-). She subsequently started adjuvant TC and completed 4 cycles on 4715. She started Arimidex on 5115. The tumor was a stage I but close to the chest wall. She subsequently underwent chemotherapy and was treated with on anastrozole. She also had radiation therapy secondary to the location near the chest wall completing this on 01-26-16. She underwent radiographic evaluation of the left breast in April 2018. Attention was noted to have some microcalcifications for which stereotactic core biopsy was attempted. The patient was unable to undergo a stereotactic core biopsy secondary to the inability to localize the lesion on the stereotactic table. The patient then underwent a breast MRI which was felt to be benign. She then presented with a repeat mammogram and underwent repeat mammogram the microcalcifications were again visible and felt to be of greater concern. She than underwent a needle localization and excisional on 08-24-19 in the operating room for removal of the areas of concern in the left breast. The pathology revealed LCIS. The patient herself did not feel anything of concern in her breast. She has no nipple discharge or skin changes. The patient had considered a left mastectomy however with the gerber virus pandemic everything was placed on hold. The patient continued to follow with mammograms of both breast, and on 08-26-23 surveillence MRI was preformed in [place]. An 8 mm lesion was noted in the upper inner right breast. A biopsy was (+) for invasive ductal cancer. ER+NE+Her2-. Genetic testing + CHECK mutation in her daughter; patient has had genetic testing CHECK 2 (+) daughter recently diagnosed with breast cancer at 37 The patient would like to have bilateral mastectomy without reconstruction. Presently on raloxifene, prior to that she was on anastrozole for [address] Carmen 09-30-23 reviewed, bone scan and CT reviewed with dR Carmen Patient just diagnosed with Parkinsons disease. Diagnosed at [facility]. Family history: 1. Mother: Lung cancer 2. Maternal grandmother: Uterine cancer 3. Paternal grandmother: Colon cancer 4. patient breast cancer 5. daughter: breast cancer Hormonal history: Menarche: 10 Pregnancies: 3, 3 children breast fed Menopause: 45 Procedure post: 2 years Hormones: Negative Past surgical history: 1. Right eardrum 2. Tonsils and adenoids 2. Right mastectomy and reconstruction Past medical history: 1. History of breast cancer 2. Abi's thyroiditis 3. new diagnosis of Parkinsons/ tremor Social history: Smoke: Negative Alcohol: Negative Drugs: Negative - Constitutional Constitutional: Denies chills, Denies fever - EENT Comment: visual flashes unknown cause Eyes: denies blurred vision, denies pain Ears: deny: decreased hearing Ears, nose, mouth and throat: Denies headache, Denies sore throat - Breasts Breasts: bilateral: as per HPI - Cardiovascular Cardiovascular: Denies chest pain, Denies shortness of breath - Respiratory Respiratory: Denies cough - Gastrointestinal Gastrointestinal: Reports constipation, Denies abdominal pain, Denies diarrhea, Denies nausea, Denies vomiting - Genitourinary (Female) Genitourinary: Denies dysuria, Denies hematuria - Menstruation Menstruation: Reports postmenopausal - Musculoskeletal Comment: stiffness from Parkinsons - Integumentary Integumentary: Denies pruritus, Denies rash - Neurological Comment: Parkinsons Neurological: Reports as per HPI, Reports numbness - Psychiatric Psychiatric: Reports anxiety, Denies depression - Endocrine Endocrine: Denies fatigue, Denies weight change - Hematologic/Lymphatic Comment: none - Allergic/Immunologic Allergic/Immunologic: Reports seasonal allergies Past Medical History Past Medical History: Cancer, Thyroid Disorder Additional Past Medical History / Comment(s): Right breast cancer 2016 with surgery, chemo & radiation tx., seasonal allergies receives allergy shots (Dr Bradford), History of Any Multi-Drug Resistant Organisms: None Reported Past Surgical History: Breast Surgery, Ear Surgery, Tonsillectomy Additional Past Surgical History / Comment(s): breast biopsy x3, rt breast mastectomy with reconstruction, colonoscopy, ear drum replaced rt ear, PARKINSONS Past Anesthesia/Blood Transfusion Reactions: Postoperative Nausea & Vomiting (PONV) Past Psychological History: No Psychological Hx Reported Smoking Status: Never smoker Past Alcohol Use History: Occasional Past Drug Use History: None Reported - Past Family History Mother Family Medical History: Cancer Additional Family Medical History / Comment(s): lung cancer Medications and Allergies Home Medications Medication Instructions Recorded Confirmed Type Cholecalciferol [Vitamin D3] 2,000 unit PO DAILY 07/19/16 10/03/23 History Cyanocobalamin [Vitamin B-12] 500 mcg PO DAILY 07/19/16 10/03/23 History Aspirin 81 mg PO DAILY 11/20/18 10/03/23 History Allergies Allergy/AdvReac Type Severity Reaction Status Date / Time adhesive AdvReac red skin Verified 10/03/23 10:00 Consent for Procedure: I have explained the operation/procedure to the patient, including the risks, benefits, side effects, alternative therapies (including not receiving the proposed treatment or service), the likelihood of the patient achieving his/her goals, and potential recuperation problems for the procedure/sedation/analgesia, as well as any blood products, if indicated. I also explained to the patient the risks, benefits and side effects of the alternatives, as well as the risks related to not receiving the proposed procedure, care, treatment, or services. Review of Systems Constitutional: Denies chills, Denies fever Eyes: denies blurred vision, denies pain Ears: deny: decreased hearing Ears, nose, mouth and throat: Denies headache, Denies sore throat Breasts: bilateral: as per HPI Cardiovascular: Denies chest pain, Denies shortness of breath Respiratory: Denies cough Gastrointestinal: Denies abdominal pain, Denies diarrhea, Denies nausea, Denies vomiting Genitourinary: Denies dysuria, Denies hematuria Menstruation: Reports postmenopausal Integumentary: Denies pruritus, Denies rash Neurological: Denies numbness, Denies weakness Psychiatric: Denies anxiety, Denies depression Endocrine: Denies fatigue, Denies weight change Allergic/Immunologic: Reports as per HPI Past Medical History Past Medical History: Cancer, Thyroid Disorder Additional Past Medical History / Comment(s): Right breast cancer 2016 with surgery, chemo & radiation tx., seasonal allergies receives allergy shots (Dr Bradford), History of Any Multi-Drug Resistant Organisms: None Reported Past Surgical History: Breast Surgery, Ear Surgery, Tonsillectomy Additional Past Surgical History / Comment(s): breast biopsy x3, rt breast mastectomy with reconstruction, colonoscopy, ear drum replaced rt ear, PARKINSONS Past Anesthesia/Blood Transfusion Reactions: Postoperative Nausea & Vomiting (PONV) Past Psychological History: No Psychological Hx Reported Smoking Status: Never smoker Past Alcohol Use History: Occasional Past Drug Use History: None Reported - Past Family History Mother Family Medical History: Cancer Additional Family Medical History / Comment(s): lung cancer Medications and Allergies Home Medications Medication Instructions Recorded Confirmed Type Cholecalciferol [Vitamin D3] 2,000 unit PO DAILY 07/19/16 10/03/23 History Cyanocobalamin [Vitamin B-12] 500 mcg PO DAILY 07/19/16 10/03/23 History Aspirin 81 mg PO DAILY 11/20/18 10/03/23 History Allergies Allergy/AdvReac Type Severity Reaction Status Date / Time adhesive AdvReac red skin Verified 10/03/23 10:00 Physical Exam - Constitutional General appearance: Reports cooperative - EENT Eyes: Reports normal appearance - Neck Neck: Reports normal ROM - Breast Breast: left: normal (right mastectomy ), both: axillary nodes (no adenopathy of concern bilateral) - Respiratory Respiratory: bilateral: CTA - Cardiovascular Cardiac: Reports regular rhythm - Gastrointestinal General gastrointestinal: Reports soft - Integumentary Integumentary: Reports normal turgor - Musculoskeletal Musculoskeletal: Reports gait normal - Psychiatric Psychiatric: Reports A&O x's 3 - Additional Findings Additional findings: Breast Exam: BRA: 36B Inspection: Right breast mastectomy/reconstruction, well-healed scar, left breast grade 2 ptosis Palpation: Right breast: Multi positional exam of chest wall no obvious evident recurrence Right axilla: No adenopathy of concern Left breast: Multi positional exam no dominant masses or nodules of concern Left axilla: No adenopathy of concern Assessment and Plan Assessment: Impression: Patient's status post right mastectomy with sentinel node biopsy in 2016 for stage Ia invasive ductal multifocal carcinoma Patient has done well until recently when an MRI revealed an 8 mm lesion in the upper inner quadrant of the right reconstructed breast. Biopsy was consistent with invasive ductal carcinoma Recently diagnosed with Parkinson's disease Plan: Presentation of case at tumor board I have discussed with patient and her treatment options Case was presented at tumor board on 10-21-2023. Recommendation is for ultrasound-guided localization of the tumor in the right chest wall area. She is going to have bilateral mastectomy, right removal of implant ultrasound- guided localization of the area of concern in the right chest wall with removal of any residual breast tissue, an attempt at sentinel node resection will be performed but no sentinel node injection will be done. Left Breast mastectomy without reconstruction. She is not interested in reconstruction. I have called the patient. She has had a CT scan chest abdomen and pelvis and a bone scan. On the bone scan there was some question of uptake in the mandible and the ninth rib. It is believed that in the mandible is most likely peridontal changes, and the ninth right rib was seen on the CAT scan and is probably an old subcortical injury. This was discussed with Dr. Carmen and no further evaluation was recommended of the sites. I have had a discussion with the patient and her regarding treatment options. At this time the patient would prefer to have right implant removed and ultrasound guidance of lesion right chest wall to assure removal, right sentinel node biopsy, possible right axillary node dissection left mastectomy without reconstruction/going flat. We would also recommend an attempt at sentinel node biopsy on the right side. 1. Presentation of case at tumor board done 2. Obtain MRI and pathology slides from [place] 3. Medical clearance from primary care physician as well as neurologist in [place] 4. genetic testing; CHEK 2 (+) 5. Await metastatic workup CT chest abdomen and pelvis and bone scan/ done 6. At this time the patient is not interested in seeing a plastic surgeon or reconstruction; Pre-op education given Functional assessment performed CC: Suma Mendoza [facility]
[2023-11-21 11:31] VITALS: BP 121/72; PULSE 73; RESP 15; TEMP 97.3
== END ==
LOC: WWCWWP 08:55
PROVIDERS: ATTEND Surgery
DX: C50.911 Malignant neoplasm of unspecified site of right female breast (principal); N65.0 Deformity of reconstructed breast; Z91.048 Other nonmedicinal substance allergy status; Z80.3 Family history of malignant neoplasm of breast; Z17.0 Estrogen receptor positive status [ER+]; Z90.11 Acquired absence of right breast and nipple

== ENCOUNTER 2023-12-09 08:12 | Day surgery (SDC) | payer MEDICARE, OTHER ==
[2023-12-04 17:16] VITALS: BMI 22.3
[~2023-12-09 08:12] MED LIST changes: +ALPRAZolam 0.5 MG TAB PO PRN; -DEXAMETHASONE SOD PHOSPHATE 10 MG/ML 1 ML VIAL IV ONE; -HEPARIN SODIUM,PORCINE 5,000 UNIT/ML 1 ML VIAL SQ ONE; -LACTATED RINGERS 1,000 ML IV SCH; +LIDOCAINE 1% (10MG/ML) FOR IV START INTRADERMA PRN; -LIDOCAINE 1% 20 ML VIAL (10MG/ML) FOR IV START INTRADERMA PRN; -ONDANSETRON 4 MG/2 ML VIAL IVP ONE; -Pre Op ABX Message 1 EACH MISC MISCELLANE ONE; -SCOPOLAMINE 1.5MG/72HR PATCH TRANSDERM ONE
[2023-12-09] MEDS: LACTATED RINGERS 1,000 ML IV SCH (08:42)
[2023-12-09] MEDS ORDERED: ALPRAZolam 0.25 MG TAB ONE (09:14)
[2023-12-09] MEDS: ALPRAZolam 0.25 MG TAB PO ONE (09:15)
[2023-12-09] MEDS ORDERED: ONDANSETRON 4 MG/2 ML VIAL ONE (09:29)
[2023-12-09] MEDS: DEXAMETHASONE SOD PHOSPHATE 4 MG/ML 1 ML VIAL IV ONE (09:33)
[2023-12-09] MEDS: ONDANSETRON 4 MG/2 ML VIAL IVP ONE (09:33)
[2023-12-09] MEDS: SCOPOLAMINE 1 MG/72 HR PATCH TRANSDERM ONE (09:33)
[2023-12-09] MEDS: ACETAMINOPHEN TAB 500 MG TAB PO PRN (09:33)
[2023-12-09] MEDS: LIDOCAINE 1% INJ 10MG/ML (20 ML MDV) SQ ONE ×2 (10:08→12:11)
[2023-12-09] MEDS: HEPARIN SODIUM,PORCINE 5,000 UNIT/ML 1 ML VIAL SQ PRN (10:42)
--- NOTE | 2023-12-09 10:52 | P.NAPBC ---
NAPBC Queries - NAPBC Queries Was patient's case review presented at [facility] tumor board? If no, comment.: Yes Was patient's pathology reviewed at [facility]? If no, comment.: Yes Was breast conservation surgery offered? If no, comment.: Yes Was sentinel node biopsy offered? If no, comment.: No (will attempt already done on prior cancer) Was diagnosis confirmed by percutaneous core biopsy? If no, comment.: Yes Is patient mastectomy patient?: Yes Was a preop referral to reconstructive surgeon offered?: Yes Clinical Stage: right breast IDC; [id number]- Stage I
[2023-12-09] MEDS ORDERED: fentaNYL (PF) 50 MCG/ML 2 ML AMP ONE (11:32)
[2023-12-09] MEDS ORDERED: LIDOCAINE 1% INJ 10MG/ML (20 ML MDV) ONE (11:32)
[2023-12-09] MEDS ORDERED: PROPOFOL 10 MG/ML 20 ML VIAL IV ONE (11:32)
[2023-12-09] MEDS ORDERED: ePHEDrine 50 MG/ML 1 ML VIAL ONE (11:32)
[2023-12-09] MEDS ORDERED: MIDAZOLAM 2 MG/2 ML VIAL ONE (11:32)
[2023-12-09] MEDS ORDERED: SUCCINYLCHOLINE CHLORIDE 200 MG/10 ML VIAL IV ONE (11:32)
[2023-12-09] MEDS: LACTATED RINGERS 1,000 ML IV ONE (13:07)
[2023-12-09] MEDS ORDERED: ONDANSETRON 4 MG/2 ML VIAL IVP PRN (14:27)
[2023-12-09] MEDS ORDERED: NALOXONE 0.4 MG/ML 1 ML VIAL IV PRN (14:27)
[2023-12-09] MEDS ORDERED: HYDROcodone/APAP 5-325MG 1 EACH TAB PO PRN (14:27)
--- NOTE | 2023-12-09 14:27 | P.BCAON ---
Date of Procedure: 12/09/23 Preoperative Diagnosis: Right breast chest wall invasive ductal carcinoma, Chek 2 mutation Postoperative Diagnosis: Same Procedure(s) Performed: Left mastectomy, right breast needle localization lumpectomy, resection of right breast implant, resection of capsule right breast implant Anesthesia: SYLVIEA Surgeon: Dior Galdamez Estimated Blood Loss (ml): 25 IV fluids (ml): 1,200 Urine output (ml): 300 Pathology: other (Left breast, right breast needle localization resection, right breast implant, right breast capsule) Condition: stable Disposition: floor Indications for Procedure: Patient with prior right mastectomy with a new right breast high on the chest wall nodule biopsy positive for invasive ductal carcinoma Operative Findings: Lesion right chest wall high on the chest wall sitting on the area of the muscle near the clavicle Description of Procedure: The patient was first seen in the radiology department. Needle localization of the biopsy-proven right chest wall cancer was performed. The patient was then brought to the operative suite. Following induction of anesthesia the right and left breast were prepped and draped in a sterile fashion. Both axillas were prepped and draped in a sterile fashion as well. The left breast was approached initially. Markings were placed for superior and inferior skin flaps. Superior and inferior skin flaps were developed and carried down to the pectoralis muscle. The breast was brought from medial to lateral off the pectoralis muscle. Hemostasis was attained using the electrocautery device as well as the harmonic scalpel. The specimen was removed. A short suture was placed superiorly and a long suture laterally. The wound was well-irrigated. After we are sure that hemostasis was attained a #10 PADMA drain was placed. The set cutaneous tissues were closed using a 3-0 Vicryl suture. This was followed by a running 3-0 Vicryl suture. The drain was secured using a nylon suture. The skin was closed using running 4-0 Monocryl. Cutaneous tissues were closed using a 3-0 Vicryl suture. This was followed by a running 3-0 Vicryl suture. The drain was secured using a nylon suture. The skin was closed using running 4 oh-0 Monocryl. The area of the right breast was approached. Skin markings were placed for superior and inferior skin flaps. The skin flaps were developed. Superiorly the skin flap was carried to the shaft of the needle which was localizing the lesion of concern. Wide dissection around this was performed. Radiograph of the specimen revealed the clip and the lesion of concern had been removed. The specimen was painted for orientation prior to radiograph. After we are sure that hemostasis was attained titanium clips were placed at that site. Posterior dissection was onto the muscle. Anterior dissection was directly under the skin. The area of the implant was opened. The implant was extruded. This was a subpectoral implant. The capsule was removed with a small amount of capsule remaining in the medial aspect of the wound. The wound was well-irrigated. A PADMA drain was placed. The deep tissues were closed using Vicryl suture. The skin was closed using running 4-0 Monocryl. The drain was secured using an island suture. The patient tolerated the procedure in stable condition. All instrument and sponge counts were correct at the end of the case. No axillary adenopathy of concern was palpated. No sentinel lymph node was removed. The patient had previously undergone an axillary node resection with her prior surgery.
[2023-12-09] MEDS: HYDROmorphone 1 MG/ML 1 ML SYRINGE IVP PRN (15:53)
[2023-12-09] MEDS: SODIUM CHLORIDE 0.9% 1,000 ML IV SCH (20:20)
[2023-12-09] MEDS: ACETAMINOPHEN TAB 325 MG TAB PO PRN (20:31)
[2023-12-09] MEDS: HEPARIN SODIUM,PORCINE 5,000 UNIT/ML 1 ML VIAL SQ SCH (20:31)
[2023-12-09] MEDS: CARBIDOPA-LEVODOPA 25-100 MG 1 EACH TAB PO SCH (20:32)
--- NOTE | 2023-12-09 21:50 | P.CONS ---
History of Present Illness - Reason for Consult Consult date: 12/09/23 Medical management Requesting physician: Dior Galdamez - Chief Complaint Mastectomy - History of Present Illness This is a very pleasant 63-year-old patient., Who is undergone resection of right breast implant, left mastectomy,. Has a diagnosis of right breast chest wall invasive ductal carcinoma. Chek 2 mutation. Patient has 2 PADMA drains. Patient's and daughter in the room. Pain controlled. No nausea vomiting. Review of systems: GEN.: Tired EYES: None HEENT: None NECK: None RESPIRATORY: None CARDIOVASCULAR: None GASTROINTESTINAL: None GENITOURINARY: Chronic urine urgency MUSCULOSKELETAL: None LYMPHATICS: None HEMATOLOGICAL: None PSYCHIATRY: None NEUROLOGICAL: [Tremors Past medical history to include: Right breast cancer 2016 with surgery, chemo and radiation. Was on thyroid replacement treatment till 10 years ago. Had Abi's. Parkinson's. Social history: Alcohol rarely. . Physical examination: VITAL SIGNS: 98.2, 82, 16, 118/72, 97% on 1 L GENERAL: BMI 22.1, reclining in bed. EYES: Pupils equal. Conjunctiva linh l. HEENT: External appearance of nose and ears normal, oral cavity grossly normal. NECK: JVD not raised; masses not palpable. HEART: First and second heart sounds are normal; no edema. LUNGS: Respiratory rate normal; clear to auscultation. ABDOMEN: Soft, nontender, liver spleen not palpable, no masses palpable. PSYCH: Alert and oriented x3; mood and affect linh l. MUSCULOSKELETAL:No Clubbing/cyanosis;muscles-grossly intact NEUROLOGICAL: Cranial nerves grossly intact; no facial asymmetry, power and sensation grossly intact. Resting tremor CHEST wall: Dressing across the chest wall. 2 PADMA drains INVESTIGATIONS, reviewed in the clinical context: October 09, 2023: BUN 15 creatinine 0.89 Assessment plan: -Resection of right breast implant and left mastectomy. Diagnosis of right breast chest wall invasive ductal carcinoma. Has 2 PADMA drain. -Parkinson's disease Sinemet 3 times daily -Chronic urine urgency Care was discussed with the patient and daughter at the bedside. Questions answered. Thank you Dr. Fatou Adam Past Medical History Past Medical History: Cancer, Neurologic Disorder, Thyroid Disorder Additional Past Medical History / Comment(s): Hx right breast cancer 2015 with surgery, chemo and radiation. Seasonal allergies. Was on Thyroid medication for 10 yrs, discontinued 1 year ago, no problems since. Parkinson's. Borderline high cholesterol. History of Any Multi-Drug Resistant Organisms: None Reported Past Surgical History: Breast Surgery, Ear Surgery, Tonsillectomy Additional Past Surgical History / Comment(s): Right breast biopsy X2 right, left breast biopsy X2, right breast mastectomy with reconstruction, colonoscopy, right ear drum replaced. Past Anesthesia/Blood Transfusion Reactions: Postoperative Nausea & Vomiting (PONV) Additional Past Anesthesia/Blood Transfusion Reaction / Comm: Slow to wake up. Smoking Status: Never smoker - Past Family History Brother(s) Family Medical History: Cancer Additional Family Medical History / Comment(s): Throat cancer. Mother Family Medical History: Cancer Additional Family Medical History / Comment(s): Lung cancer with mets to brain. Medications and Allergies Home Medications Medication Instructions Recorded Confirmed Type Cholecalciferol [Vitamin D3] 2,000 unit PO DIRECTED 07/19/16 12/09/23 History Cyanocobalamin [Vitamin B-12] 500 mcg PO DIRECTED 07/19/16 12/09/23 History Aspirin 81 mg PO DAILY 11/20/18 12/09/23 History Carbidopa/Levodopa 1 tab PO TID 12/04/23 12/09/23 History [Carbidopa-Levodopa 25-100 Tab] valACYclovir HCL [Valacyclovir] 1,000 mg PO DAILY PRN 12/04/23 12/09/23 History oxyCODONE HCL [Oxaydo] 5 mg PO Q6H PRN 3 Days #10 tab 12/09/23 Rx Allergies Allergy/AdvReac Type Severity Reaction Status Date / Time adhesive AdvReac red skin Verified 12/09/23 08:41 Physical Exam Vitals: Vital Signs Temp Pulse Pulse Resp BP BP Pulse Ox 12/09/23 17:40 98.2 F 82 16 118/72 97 12/09/23 17:25 86 16 131/68 97 12/09/23 17:10 89 16 112/68 97 12/09/23 16:55 78 16 129/66 97 12/09/23 16:25 98.0 F 81 16 131/73 96 12/09/23 16:09 82 16 136/76 98 12/09/23 16:00 16 12/09/23 15:55 90 18 149/69 98 12/09/23 15:40 97.4 F L 99 17 161/90 100 12/09/23 15:26 88 16 150/81 94 L 12/09/23 15:12 86 16 144/75 94 L 12/09/23 14:57 85 16 153/78 97 12/09/23 14:42 98.2 F 108 H 16 135/56 99 12/09/23 10:21 98.1 F 77 16 124/76 12/09/23 09:57 98.1 F 71 16 120/71 12/09/23 08:40 97.1 F L 78 18 121/72 98 Intake and Output 12/09/23 12/09/23 12/09/23 06:59 14:59 22:59 Intake Total 1450 Output Total 325 Balance 1125 Intake: IV 1450 Output: Urine 300 Estimated Blood Loss 25 Other: Weight 58.3 kg
[2023-12-10 00:34] VITALS: RESP 18; TEMP 98.5
[2023-12-10 08:10] VITALS: BP 120/70; PULSE 73
[2023-12-10 08:10] LABS: Basophils # (A) 0.1 k/uL (0-0.2); Basophils % (A) 1 %; Eosinophils # (A) 0.1 k/uL (0-0.7); Eosinophils % (A) 1 %; HCT 36.8 % (34.0-46.0); Lymphocytes # (A) 2.3 k/uL (1.0-4.8); Lymphocytes % (A) 34 %; MCH 30.9 pg (25.0-35.0); MCHC 32.4 g/dL (31.0-37.0); MCV 95.2 fL (80.0-100.0); Mean Platelet Volume 8.1; Monocytes # (A) 0.4 k/uL (0-1.0); Monocytes % (A) 6 %; Neutrophils # (A) 3.9 k/uL (1.3-7.7); Neutrophils % (A) 57 %; Platelet Count 199 k/uL (150-450); RBC 3.87 m/uL (3.80-5.40); RDW 12.5 % (11.5-15.5); WBC 6.8 k/uL (3.8-10.6)
--- NOTE | 2023-12-10 10:32 | P.PN ---
Subjective Progress Note Date: 12/10/23 Principal diagnosis: Postop day #1 left mastectomy, right needle localization excision of lesion chest wall, removal of implant and capsule The patient is postop day #1 left mastectomy, right needle localization excision lesion chest wall, capsulectomy and implant removal right side. Postoperatively she is doing well. She is tolerating diet without difficulty. Her pain is under control. PADMA drain bilaterally approximately 40 cc of serous fluid. Objective - Vital Signs Vital signs: Vital Signs Temp 98.5 F 12/10/23 08:02 Pulse 73 12/10/23 08:02 Resp 18 12/10/23 08:02 BP 120/70 12/10/23 08:02 Pulse Ox 99 12/10/23 08:02 FiO2 Intake & Output 12/09/23 12/10/23 12/10/23 18:59 06:59 18:59 Intake Total 1450 Output Total 325 1625 750 Balance 1125 -1625 -750 Weight 58.3 kg Intake: IV 1450 Output: Drainage 125 Bilateral Chest 125 Urine 300 1500 750 Estimated Blood Loss 25 Other: # Voids 1 1 - Constitutional General appearance: Present: cooperative - EENT ENT: Present: hearing grossly normal - Neck Neck: Present: normal ROM - Respiratory Respiratory: bilateral: CTA - Cardiovascular Heart sounds: normal: S1, S2 - Integumentary Integumentary Comment(s): Incision clean and dry bilateral, PADMA output serous in nature - Labs CBC & Chem 7: 12/10/23 07:42 Assessment and Plan Assessment: Impression: Patient doing well postop Plan: Discharge patient home Teach drain care Patient to follow-up 1 week
--- NOTE | 2023-12-10 15:45 | P.PN ---
Progress Note - Text Progress Note Date: 12/10/23 - Chief Complaint Mastectomy - History of Present Illness This is a very pleasant 63-year-old patient., Who is undergone resection of right breast implant, left mastectomy,. Has a diagnosis of right breast chest wall invasive ductal carcinoma. Chek 2 mutation. Patient has 2 PADMA drains. Patient's and daughter in the room. Pain controlled. No nausea vomiting. December 09: Feeling better today. Pain well-controlled. Did tolerate diet. He will be discharged home with both PADMA drains. Discussed with the patient and the . Medications reviewed Past medical history to include: Right breast cancer 2016 with surgery, chemo and radiation. Was on thyroid replacement treatment till 10 years ago. Had Abi's. Parkinson's. Social history: Alcohol rarely. . Physical examination: VITAL SIGNS: 98.5, 73, 18, 120/70, 99% room air GENERAL: Sitting up in bed, comfortable d. EYES: Pupils equal. Conjunctiva linh l. HEENT: External appearance of nose and ears normal, oral cavity grossly normal. NECK: JVD not raised; masses not palpable. HEART: First and second heart sounds are normal; no edema. LUNGS: Respiratory rate normal; clear to auscultation. ABDOMEN: Soft, nontender, liver spleen not palpable, no masses palpable. PSYCH: Alert and oriented x3; mood and affect linh l. NEUROLOGICAL: Cranial nerves grossly intact; no facial asymmetry, power and sensation grossly intact. Resting tremor CHEST wall: Dressing across the chest wall. 2 PADMA drains INVESTIGATIONS, reviewed in the clinical context: December 09: White count 6.8 hemoglobin 12 platelets 199 October 09, 2023: BUN 15 creatinine 0.89 Assessment plan: -Resection of right breast implant and left mastectomy. Diagnosis of right breast chest wall invasive ductal carcinoma. Has 2 PADMA drain. -Parkinson's disease Sinemet 3 times daily -Chronic urine urgency Discussed. Medically stable for discharge. Follow-up with PCP. Thank you Dr. Fatou Adam
--- NOTE | 2023-12-17 09:39 | MM ---
Pathology Description: Location: 1 o'clock, upper inner quadrant. Needle Type: 5 cm K[place] Informed consent was obtained and all the patient's questions were answered. The lesion in question was localized sonographically. The standard sterile technique was utilized, as well as appropriate local anesthesia with 1% Lidocaine. Localization needle followed by placement of a guidewire was performed under mammographic guidance. Verification images demonstrate appropriate deployment of the guidewire. The patient tolerated the procedure well and left the department in stable condition. Specimen radiograph demonstrates the clip and lesion in question to reside within the specimen. IMPRESSION: Successful needle localization and open biopsy right breast with pathology results pending. Pathology Results: Result: Malignant, Invasive ductal carcinoma. Pathology and radiology were reviewed. Findings are concordant. A. RIGHT BREAST, LUMPECTOMY: Invasive moderately differentiated ductal carcinoma (Grade 2), margins negative. See Surgical Pathology Cancer Case Summary. B. RIGHT BREAST TISSUE: Benign cystic cavity with adjacent scar/fibrosis and mild chronic inflammation consistent with capsule. C. RIGHT BREAST IMPLANT: Intact synthetic breast implant, clinically explanted. D. LEFT BREAST, MASTECTOMY: Benign breast tissue with fibrosis/scar and fibrocystic changes. Benign skin with seborrheic keratosis. Overall Assessment: Malignant Management: Surgical Consultation of the right breast. Electronically signed and approved by: Akil Tracey M.D. Radiologis
== END 2023-12-10 12:15 | disposition home or self-care (01) ==
LOC: OR 08:12 → 4FBP 14:40 → OR 12-10 12:15
PROVIDERS: ATTEND Surgery
DX: C50.911 Malignant neoplasm of unspecified site of right female breast (principal); E78.00 Pure hypercholesterolemia, unspecified; G20.A1 Parkinson's disease without dyskinesia, without mention of fluctuations; L82.1 Other seborrheic keratosis; N60.12 Diffuse cystic mastopathy of left breast; L90.5 Scar conditions and fibrosis of skin; E07.9 Disorder of thyroid, unspecified; F10.90 Alcohol use, unspecified, uncomplicated; Z98.82 Breast implant status; Z90.13 Acquired absence of bilateral breasts and nipples; Z79.899 Other long term (current) drug therapy; Z79.82 Long term (current) use of aspirin
CPT/HCPCS: 19301; 19303; 88305; 85025; 88307; 88300; 76098; 76999; 19285; C1819; J2250; J0330; J1644 ×2; J1100; J0690; J2405; J2001; J3010; J1170; J2704

== ENCOUNTER → 2023-12-18 | Outpatient (CLI) | payer MEDICARE, OTHER ==
--- NOTE | 2023-12-18 10:06 | P.BCPO ---
Progress Note - Text Progress Note Date: 12/18/23 Joanna is status post right breast excision of tumor on chest wall, invasive ductal cancer, removal of right breast implant, left mastectomy on 12-09-23. Her margins of resection were (-) for 7 mm lesion. The left breast fibrocystic changes. Patient seen by DR. Carmen, patient's started on a different antiestrogen agent. She believes it is letrozole. She was on Reloxifene when she developed a recurrent lesion. The raloxifene she was on anastrozole for 7 years. Examination: Lungs: Clear Heart: Regular rate and rhythm Incision bilateral chest wall clean and dry PADMA right approximately 40 cc per 24 hours PADMA left minimal Impression: Patient doing well Plan: BEATRICE ROUSE left appointment with radiation oncology Functional assessment done: Able to raise both arms with no difficulty Pathology report given to patient Patient will follow-up next week CC: Nella
[2023-12-18 10:08] VITALS: BP 123/70; PULSE 97; RESP 17; TEMP 97.8
== END ==
LOC: WWCWWP 09:13
PROVIDERS: ATTEND Surgery
DX: N60.12 Diffuse cystic mastopathy of left breast (principal); Z85.3 Personal history of malignant neoplasm of breast; Z48.817 Encounter for surgical aftercare following surgery on the skin and subcutaneous tissue; Z90.12 Acquired absence of left breast and nipple; Z98.82 Breast implant status; Z91.048 Other nonmedicinal substance allergy status

== ENCOUNTER → 2024-04-22 | Outpatient (CLI) | payer MEDICARE, OTHER ==
[2024-04-22 14:05] VITALS: BP 120/66; PULSE 75; RESP 16; TEMP 98.3
--- NOTE | 2024-04-22 14:16 | P.PN ---
Subjective Progress Note Date: 04/22/24 History of Present Illness 04-22-24 Chief Complaint: right breast invasive ductal cancer 2016 stage I right breast cancer/ left breast LCIS The patient is a 63-year-old white female who is status post right breast mastectomy and reconstruction in 2015. Mastectomy at that time revealed multiple foci of invasive cancer at least 7 sites, the largest 1.1 cm, multiple foci of grade 3 invasive lobular carcinoma, and extensive DCIS, one node (-). She subsequently started adjuvant TC and completed 4 cycles on 4715. She started Arimidex on 5115. The tumor was a stage I but close to the chest wall. She subsequently underwent chemotherapy and was treated with on anastrozole. She also had radiation therapy secondary to the location near the chest wall completing this on 01-26-16. She underwent radiographic evaluation of the left breast in April 2018. Attention was noted to have some microcalcifications for which stereotactic core biopsy was attempted. The patient was unable to undergo a stereotactic core biopsy secondary to the inability to localize the lesion on the stereotactic table. The patient then underwent a breast MRI which was felt to be benign. She then presented with a repeat mammogram and underwent repeat mammogram the microcalcifications were again visible and felt to be of greater concern. She than underwent a needle localization and excisional on 08-24-19 in the operating room for removal of the areas of concern in the left breast. The pathology revealed LCIS. The patient herself did not feel anything of concern in her breast. She has no nipple discharge or skin changes. The patient had considered a left mastectomy however with the gerber virus pandemic everything was placed on hold. The patient continued to follow with mammograms of both breast, and on 08-26-23 surveillence MRI was preformed in [place]. An 8 mm lesion was noted in the upper inner right breast. A biopsy was (+) for invasive ductal cancer. ER+CO+Her2-. note Dr. Carmen 09-30-23 reviewed, bone scan and CT reviewed with dR Carmen Genetic testing + CHECK mutation in her daughter; patient has had genetic testing CHECK 2 (+) daughter recently diagnosed with breast cancer at 37 The patient on 12-09-23 underwent removal of right breast implant, and left mastectomy without reconstruction. Patient on raloxifene when recurrence diagnosed, prior to that she was on anastrozole for 7 years. Patient diagnosed with Parkinsons disease. Diagnosed at [facility]. She is on carbadopa/levadopa TID it seems to be stable. She is not complaining of any new lumps masses or nodules of concern in either chest wall. She is on exmestane She has not had any radiation since her original surgery in 2016. She is following with Dr. Carmen every 6 months. We discussed her seeing a radiation oncologist on her last visit, Dr. Carmen has discussed this with her as well. It was felt that this was not necessary. If there is any recurrence then she would certainly consider seeing a radiation oncologist at that time. Family history: 1. Mother: Lung cancer 2. Maternal grandmother: Uterine cancer 3. Paternal grandmother: Colon cancer 4. patient breast cancer 5. daughter: breast cancer Hormonal history: Menarche: 10 Pregnancies: 3, 3 children breast fed Menopause: 45 Procedure post: 2 years Hormones: Negative Past surgical history: 1. Right eardrum 2. Tonsils and adenoids 2. Right mastectomy and reconstruction Past medical history: 1. History of breast cancer 2. Abi's thyroiditis 3. new diagnosis of Parkinsons/ tremor Social history: Smoke: Negative Alcohol: Negative Drugs: Negative - Constitutional Constitutional: Denies chills, Denies fever - EENT Comment: visual flashes unknown cause Eyes: denies blurred vision, denies pain Ears: deny: decreased hearing Ears, nose, mouth and throat: Denies headache, Denies sore throat - Breasts Breasts: bilateral: as per HPI - Cardiovascular Cardiovascular: Denies chest pain, Denies shortness of breath - Respiratory Respiratory: Denies cough - Gastrointestinal Gastrointestinal: Reports constipation, Denies abdominal pain, Denies diarrhea, Denies nausea, Denies vomiting - Genitourinary (Female) Genitourinary: Denies dysuria, Denies hematuria - Menstruation Menstruation: Reports postmenopausal - Musculoskeletal Comment: stiffness from Parkinsons - Integumentary Integumentary: Denies pruritus, Denies rash - Neurological Comment: Parkinsons Neurological: Reports as per HPI, Reports numbness - Psychiatric Psychiatric: Reports anxiety, Denies depression - Endocrine Endocrine: Denies fatigue, Denies weight change - Hematologic/Lymphatic Comment: none - Allergic/Immunologic Allergic/Immunologic: Reports seasonal allergies Past Medical History Past Medical History: Cancer, Thyroid Disorder Additional Past Medical History / Comment(s): Right breast cancer 2016 with surgery, chemo & radiation tx., seasonal allergies receives allergy shots (Dr Bradford), History of Any Multi-Drug Resistant Organisms: None Reported Past Surgical History: Breast Surgery, Ear Surgery, Tonsillectomy Additional Past Surgical History / Comment(s): breast biopsy x3, rt breast mastectomy with reconstruction, colonoscopy, ear drum replaced rt ear, PARKINSONS Past Anesthesia/Blood Transfusion Reactions: Postoperative Nausea & Vomiting (PONV) Past Psychological History: No Psychological Hx Reported Smoking Status: Never smoker Past Alcohol Use History: Occasional Past Drug Use History: None Reported - Past Family History Mother Family Medical History: Cancer Additional Family Medical History / Comment(s): lung cancer Medications and Allergies Home Medications Medication Instructions Recorded Confirmed Type Cholecalciferol [Vitamin D3] 2,000 unit PO DAILY 07/19/16 10/03/23 History Cyanocobalamin [Vitamin B-12] 500 mcg PO DAILY 07/19/16 10/03/23 History Aspirin 81 mg PO DAILY 11/20/18 10/03/23 History Allergies Allergy/AdvReac Type Severity Reaction Status Date / Time adhesive AdvReac red skin Verified 10/03/23 10:00 Objective - Constitutional General appearance: Present: cooperative - EENT Eyes: Present: EOMI ENT: Present: hearing grossly normal - Neck Neck: Present: normal ROM - Respiratory Respiratory: bilateral: CTA - Cardiovascular Rhythm: regular Heart sounds: normal: S1, S2 - Gastrointestinal General gastrointestinal: Present: soft - Integumentary Integumentary: Present: normal turgor - Musculoskeletal Musculoskeletal: Present: gait normal - Psychiatric Psychiatric: Present: A&O x's 3, appropriate affect, intact judgment & insight - Additional findings Additional findings: Chest Wall Exam: Inspection: Bilateral chest wall incisions well-healed Palpation: Right chest wall: incision clean and dry and well-healed, no evidence of any recurrent disease, no lumps masses or nodules of concern Right axilla: No adenopathy of concern Left chest wall: Incision clean and dry well-healed no evidence of any disease Left axilla: No adenopathy of concern Assessment and Plan Assessment: Impression: bilateral mastectomy, recurrent right breast lesion ; right breast residual tissue 7 mm IDC lesion margins(-), left breast firbrocystic disease Plan: presently on exmestane discussed appointment with radiation oncology and will consider it follow up in 6 months cc: Dr. Mendoza
== END ==
LOC: WWCWWP 12:47
PROVIDERS: ATTEND Surgery
DX: C50.911 Malignant neoplasm of unspecified site of right female breast (principal); C50.912 Malignant neoplasm of unspecified site of left female breast; G20.A1 Parkinson's disease without dyskinesia, without mention of fluctuations; Z90.13 Acquired absence of bilateral breasts and nipples; Z80.3 Family history of malignant neoplasm of breast; Z17.0 Estrogen receptor positive status [ER+]; Z91.048 Other nonmedicinal substance allergy status

== ENCOUNTER → 2024-10-21 | Outpatient (CLI) | payer MEDICARE, OTHER ==
[2024-10-21 13:44] VITALS: BP 116/74; PULSE 93; RESP 17; TEMP 97.9
--- NOTE | 2024-10-21 14:45 | P.PN ---
Subjective Progress Note Date: 10/21/24 10-21-24 Chief Complaint: right breast invasive ductal cancer 2016 stage I right breast cancer/ left breast LCIS The patient is a 64-year-old white female who is status post right breast mastectomy and reconstruction in 2015. Mastectomy at that time revealed multiple foci of invasive cancer at least 7 sites, the largest 1.1 cm, multiple foci of grade 3 invasive lobular carcinoma, and extensive DCIS, one node (-). She subsequently started adjuvant TC and completed 4 cycles on 4715. She started Arimidex on 5115. The tumor was a stage I but close to the chest wall. She subsequently underwent chemotherapy and was treated with on anastrozole. She also had radiation therapy secondary to the location near the chest wall completing this on 01-26-16. She underwent radiographic evaluation of the left breast in April 2018. Attention was noted to have some microcalcifications for which stereotactic core biopsy was attempted. The patient was unable to undergo a stereotactic core biopsy secondary to the inability to localize the lesion on the stereotactic table. The patient then underwent a breast MRI which was felt to be benign. She then presented with a repeat mammogram and underwent repeat mammogram the microcalcifications were again visible and felt to be of greater concern. She than underwent a needle localization and excisional on 08-24-19 in the operating room for removal of the areas of concern in the left breast. The pathology revealed LCIS. The patient herself did not feel anything of concern in her breast. She has no nipple discharge or skin changes. The patient had considered a left mastectomy however with the gerber virus pandemic everything was placed on hold. The patient continued to follow with mammograms of both breast, and on 08-26-23 surveillence MRI was preformed in [place]. An 8 mm lesion was noted in the upper inner right breast. A biopsy was (+) for invasive ductal cancer. ER+NH+Her2-. note Dr. Carmen 10-02-23 reviewed, bone scan and CT reviewed with Dr Carmen Genetic testing + CHECK mutation in her daughter; patient has had genetic testing CHECK 2 (+) daughter recently diagnosed with breast cancer at 37 The patient on 12-09-23 underwent removal of right breast implant, and left mastectomy without reconstruction. Patient on raloxifene when recurrence diagnosed, prior to that she was on anastrozole for 7 years. Patient diagnosed with Parkinsons disease. Diagnosed at [facility]. She is on c arbadopa/levadopa TID it seems to be stable. She is not complaining of any new lumps masses or nodules of concern in either chest wall. She is on exmestane She has not had any radiation since her original surgery in 2016. She is following with Dr. Carmen every 6 months. We discussed her seeing a radiation oncologist on her last visit, Dr. Carmen has discussed this with her as well. It was felt that this was not necessary. If there is any recurrence then she would certainly consider seeing a radiation oncologist at that time. She is not complaining of any changes on her chest wall Family history: 1. Mother: Lung cancer 2. Maternal grandmother: Uterine cancer 3. Paternal grandmother: Colon cancer 4. patient breast cancer 5. daughter: breast cancer Hormonal history: Menarche: 10 Pregnancies: 3, 3 children breast fed Menopause: 45 Procedure post: 2 years Hormones: Negative Past surgical history: 1. Right eardrum 2. Tonsils and adenoids 2. Right mastectomy and reconstruction Past medical history: 1. History of breast cancer 2. Abi's thyroiditis 3. new diagnosis of Parkinsons/ tremor Social history: Smoke: Negative Alcohol: Negative Drugs: Negative - Constitutional Constitutional: Denies chills, Denies fever - EENT Comment: visual flashes unknown cause Eyes: denies blurred vision, denies pain Ears: deny: decreased hearing Ears, nose, mouth and throat: Denies headache, Denies sore throat - Breasts Breasts: bilateral: as per HPI - Cardiovascular Cardiovascular: Denies chest pain, Denies shortness of breath - Respiratory Respiratory: Denies cough - Gastrointestinal Gastrointestinal: Reports constipation, Denies abdominal pain, Denies diarrhea, Denies nausea, Denies vomiting - Genitourinary (Female) Genitourinary: Denies dysuria, Denies hematuria - Menstruation Menstruation: Reports postmenopausal - Musculoskeletal Comment: stiffness from Parkinsons - Integumentary Integumentary: Denies pruritus, Denies rash - Neurological Comment: Parkinsons Neurological: Reports as per HPI, Reports numbness - Psychiatric Psychiatric: Reports anxiety, Denies depression - Endocrine Endocrine: Denies fatigue, Denies weight change - Hematologic/Lymphatic Comment: none - Allergic/Immunologic Allergic/Immunologic: Reports seasonal allergies Past Medical History Past Medical History: Cancer, Thyroid Disorder Additional Past Medical History / Comment(s): Right breast cancer 2016 with surgery, chemo & radiation tx., seasonal allergies receives allergy shots (Dr Bradford), History of Any Multi-Drug Resistant Organisms: None Reported Past Surgical History: Breast Surgery, Ear Surgery, Tonsillectomy Additional Past Surgical History / Comment(s): breast biopsy x3, rt breast mastectomy with reconstruction, colonoscopy, ear drum replaced rt ear, PARKINSONS Past Anesthesia/Blood Transfusion Reactions: Postoperative Nausea & Vomiting (PONV) Past Psychological History: No Psychological Hx Reported Smoking Status: Never smoker Past Alcohol Use History: Occasional Past Drug Use History: None Reported - Past Family History Mother Family Medical History: Cancer Additional Family Medical History / Comment(s): lung cancer Medications and Allergies Home Medications Medication Instructions Recorded Confirmed Type Cholecalciferol [Vitamin D3] 2,000 unit PO DAILY 07/19/16 10/03/23 History Cyanocobalamin [Vitamin B-12] 500 mcg PO DAILY 07/19/16 10/03/23 History Aspirin 81 mg PO DAILY 11/20/18 10/03/23 History Allergies Allergy/AdvReac Type Severity Reaction Status Date / Time adhesive AdvReac red skin Verified 10/03/23 10:00 Objective - Vital Signs Vital signs: Vital Signs Temp 97.9 F 10/21/24 13:42 Pulse 93 10/21/24 13:42 Resp 17 10/21/24 13:42 BP 116/74 10/21/24 13:42 Pulse Ox 100 10/21/24 13:42 FiO2 Intake & Output 10/20/24 10/21/24 10/21/24 18:59 06:59 18:59 Weight 57.606 kg - Constitutional General appearance: Present: cooperative - EENT Eyes: Present: EOMI ENT: Present: hearing grossly normal - Neck Neck: Present: normal ROM - Respiratory Respiratory: bilateral: CTA - Cardiovascular Rhythm: regular Heart sounds: normal: S1, S2 - Integumentary Integumentary: Present: normal turgor - Musculoskeletal Musculoskeletal: Present: gait normal - Psychiatric Psychiatric: Present: A&O x's 3, appropriate affect, intact judgment & insight - Additional findings Additional findings: Chest Wall Exam: Inspection: Bilateral chest wall incisions well-healed Palpation: Right chest wall: incision clean and dry and well-healed, no evidence of any recurrent disease, no lumps masses or nodules of concern; Right axilla: No adenopathy of concern Left chest wall: Incision clean and dry well-healed no evidence of any disease Left axilla: No adenopathy of concern Assessment and Plan Assessment: Impression: bilateral mastectomy, recurrent right breast lesion; right breast residual tissue 7 mm IDC lesion margins(-), left breast firbrocystic disease Plan: presently on exmestane right chest wall ultrasound r/o any soft tissue masses to be done in December when she comes to see Dr. Carmen, follow up after this discussed appointment with radiation oncology and she is not seeing them but will if tumor recurs we discussed MRI of the chest but patient declined follow up in December cc: Dr. Betsy Mendoza
== END ==
LOC: WWCWWP 13:30
PROVIDERS: ATTEND Surgery
DX: Z12.31 Encounter for screening mammogram for malignant neoplasm of breast (principal); N63.10 Unspecified lump in the right breast, unspecified quadrant; N60.12 Diffuse cystic mastopathy of left breast; Z90.13 Acquired absence of bilateral breasts and nipples; Z80.3 Family history of malignant neoplasm of breast; Z85.3 Personal history of malignant neoplasm of breast; Z91.048 Other nonmedicinal substance allergy status

== ENCOUNTER → 2025-02-03 | Outpatient (CLI) | payer MEDICARE, OTHER ==
--- NOTE | 2025-02-04 16:09 | PE ---
EXAMINATION TYPE: PET CT fusion skull to thigh DATE OF EXAM: 02/03/2025 CLINICAL INDICATION:Female, 64 years old with history of Breast ca; TECHNIQUE: Following the intravenous administration of 12.5 mCi of F-18 FDG, whole body images are performed from the skull base to the midthigh. Images are reviewed on the computer in the coronal, a xial, and sagittal planes. Reconstructed rotating images are created on independent workstation and reviewed on the computer. A non-contrast CT is performed in conjunction with the PET scan. Glucose level 76 mg/dL CT DLP: 421.7 mGycm, Automated exposure control for dose reduction was used. COMPARISON: CT 10/09/2023, PET/CT None, MRI: 09/05/2023 FINDINGS: Mediastinal SUV mean is 2.4. Hepatic parenchyma SUV mean is 2.8. SKULL BASE AND NECK: There is focal radiotracer uptake within the posterior midline nasopharynx in the region of the phary ngeal tonsil with a maximum SUV of 7.2. Slightly asymmetrical increased radiotracer uptake within the right lingual tonsil/tongue base. Demon strates a maximum SUV of 5.6. CHEST, MEDIASTINUM, AND HILAR REGION: Interval bilateral mastectomy with removal of right breast pros thesis from prior CT. Anterior right chest 1.5 cm lesion (series 4, image 86). Demonstrates a maximu m SUV of 2.4 which is at background levels. No FDG avid axillary adenopathy. ABDOMEN AND PELVIS: No suspicious radiotracer activity. MUSCULOSKELETAL STRUCTURES: No suspicious radiotracer activity. OTHER CT: Trace anterior pericardial effusion. IMPRESSION: 1. Postsurgical changes from bilateral mastectomy with right anterior chest wall 1.5 cm lesion with l ow level FDG activity at background levels. May represent residual posttreatment change versus other etiologies with malignancy not excluded. Recommend further evaluation with ultrasound. 2. Focal radiotracer activity within the midline posterior nasopharynx in the region of the pharyngea l tonsil and asymmetric increased radiotracer uptake within the region of the right lingual tonsil/to ngue base. Probably represents inflammatory changes. Correlate clinically. [facility], , 02/04/2025 4:07 PM
== END | disposition home or self-care (01) ==
LOC: RADPETMAIN 09:53
PROVIDERS: ATTEND Internal Medicine Hematology & Oncology
DX: C50.811 Malignant neoplasm of overlapping sites of right female breast (principal); Z90.13 Acquired absence of bilateral breasts and nipples
CPT/HCPCS: 78815; A9552